=== PATIENT | female | born 1960 | race Caucasian/White ===

== ENCOUNTER 2021-03-31 21:31 | Inpatient (IN) ==
[2021-03-31] MEDS ORDERED: ALBUT/IPRATROP 3MG/0.5MG NEB 3 ML VIAL NEB STA ×2 (21:42)
[2021-03-31 21:58] LABS: Basophils # (auto) 0.01 K/uL (0-0.2); Basophils % (auto) 0.1 %; Eosinophils # (auto) 0.02 K/uL (0-0.5); Eosinophils % (auto) 0.2 %; Hematocrit (blood only) 44.8 % (37-47); Hemoglobin 14.3 g/dL (12.0-16.0); Immature Granulocytes # (auto) 0.02 K/uL (0.00-0.02); Immature Granulocytes % (auto) 0.2 %; Lymphocytes # (auto) 1.08 K/uL (1.2-3.4); Lymphocytes % (auto) 9.4 %; Mean Corpuscular Hemoglobin 29.9 pg (25-34); Mean Corpuscular Hgb Conc 31.9 g/dL (32-36); Mean Corpuscular Volume 93.5 fL (80-100); Mean Platelet Volume 10.6 fL (7.4-10.4); Monocytes # (auto) 0.45 K/uL (0.11-0.59); Monocytes % (auto) 3.9 %; Neutrophils # (auto) 9.86 K/uL (1.4-6.5); Neutrophils % (auto) 86.2 %; Platelet Count 235 K/uL (130-400); RDW Coefficient of Variation 13.9 % (11.5-14.5); RDW Standard Deviation 47.5 fL (36.4-46.3); Red Blood Count 4.79 M/uL (4.2-5.4); White Blood Count 11.44 K/uL (4.8-10.8)
[2021-03-31 22:11] LABS: Partial Thromboplastin Time 25.3 Seconds (21.0-31.0); Prothrombin Time 10.4 Seconds (9.0-12.0)
[2021-03-31 22:11] LABS: Base Excess VBG 2.6 mEq/L; Oxygen Saturation VBG 72.6 %; pH VBG 7.32 (7.36-7.41)
[2021-03-31 22:14] LABS: BUN Creatinine Ratio 13.8 (10-20); Creatinine Clr Calc Pharmacy 56.5 ml/min; Est GFR (African American) 48.3 ml/min; Est GFR (Non-African American) 41.7 ml/min; Potassium 3.5 mmol/L (3.5-5.1)
[2021-03-31 22:18] LABS: Troponin I 0.027 ng/ml (0-0.045)
[2021-03-31] MEDS ORDERED: OPTIRAY 320 125ml IV ONE (22:38)
--- NOTE | 2021-04-01 00:07 | Emergency Department Note ---
History of Present Illness General Chief Complaint: Shortness of Breath/Dyspnea Stated Complaint: Difficulty Breathing Time Seen by Provider: 03/31/21 21:35 History of Present Illness Provider Complaint: shortness of breath Onset (ago): day(s) (1) Severity: severe Relieved By: + oxygen and + bronchodilators Exacerbated By: + lying flat, + coughing and + talking Known history of: COPD and congestive heart failure Associated symptoms: + wheezing; no chest pain, no fever, no cough, no sputum production, no palpitations, no hemoptysis, no syncope or no abdominal pain Treatment prior to arrival: oxygen, bronchodilator (1 duoneb) and NIPPV (CPAP) HPI Narrative: Solu-Medrol 125 mg. Patient is vaccine gets COVID-19 with the Traackr vaccine. Home Medications Medication Instructions Recorded Confirmed Type No Known Home Medications 03/31/21 03/31/21 History Allergies Allergy/AdvReac Type Severity Reaction Status Date / Time No Known Allergies Allergy Verified 03/31/21 22:24 Past Med/Surg History Medical History (Updated 04/01/21 @ 00:51 by Sukh Dumont) CHF (congestive heart failure) COPD (chronic obstructive pulmonary disease) No pertinent family history Surgical History (Updated 04/01/21 @ 00:05 by Sukh Dumont) No pertinent past surgical history Social History Smoking Status: Current every day smoker Tobacco Type: Cigarettes Feels Safe at Home: Yes Review of Systems A total of 10 systems reviewed and were otherwise negative Physical Exam Vital Signs: Vital Signs - 24 hr 03/31/21 21:37 03/31/21 21:49 03/31/21 21:56 Temperature 36.9 C Temperature Source Oral Pulse Rate 102 H 104 H Pulse Rate [Apical ] 104 H 104 H Pulse Rate from Sp O2 Sensor 109 H Respiratory Rate 38 H 25 H 26 H Respiratory Effort / Characteristics Labored Short of Breath Respiratory Depth Normal Respiratory Patter n Regular Blood Pressure 217/140 H 217/140 H Blood Pressure Ana n 165 165 Blood Pressure Pos ition Sitting Pulse Oximetry 98 98 96 Oxygen Delivery Me thod CPAP BiPAP Fraction of Inspir ed Oxygen 50 40 SaO2/FiO2 Ratio 196 Sepsis Recent Feve r Within 48 Hours No Sepsis New/Unexpla ined Change in Men indira Status N/A Sepsis Action Take n by Nursing No Action Required 03/31/21 22:15 03/31/21 23:00 04/01/21 00:01 Temperature Temperature Source Pulse Rate 91 H 118 H 80 Pulse Rate [Apical ] Pulse Rate from Sp O2 Sensor 91 H 117 H 81 Respiratory Rate 22 17 15 Respiratory Effort / Characteristics Respiratory Depth Respiratory Patter n Blood Pressure 215/118 H 199/116 H 177/100 H Blood Pressure Ana n 150 143 125 Blood Pressure Pos ition Pulse Oximetry 96 97 90 Oxygen Delivery Me thod BiPAP Fraction of Inspir ed Oxygen 40 SaO2/FiO2 Ratio Sepsis Recent Feve r Within 48 Hours Sepsis New/Unexpla ined Change in Men nidira Status Sepsis Action Take n by Nursing Physical Exam: Physical Exam GENERAL: Patient on CPAP in respiratory distress. HENT: Exam performed. -Head: Normocephalic and atraumatic. -Right Ear: External ear normal. No mastoid tenderness. -Left Ear: External ear normal. No mastoid tenderness. -Mouth/Throat: The oropharynx is clear and moist. No trismus in the jaw. No dental abscesses or uvula swelling. No oropharyngeal exudate or tonsillar abscesses. EYES: Conjunctivae and EOM are normal. Pupils are equal, round, and reactive to light. Right eye exhibits no discharge. Left eye exhibits no discharge. No scleral icterus. NECK: Normal range of motion. Neck supple. No JVD present. No spinous process tenderness present. No carotid bruit present. No rigidity. No tracheal deviation and normal range of motion present. No Brudzinski's sign and no Kernig's sign noted. CV: Tachycardic rate, regular rhythm, normal heart sounds and intact distal pulses. There is no peripheral edema. Palpable radial pulses bue. PULM/CHEST: Patient tachypneic in respiratory distress. Bilateral expiratory wheezes. ABD: The abdomen is soft. Bowel sounds are normal. She has no distension. No mass is present. There is no tenderness. There is no rebound, no guarding, no Lopez's sign and no tenderness at McBurney's point. Rovsig negative MUSC/SKEL: Normal range of motion. There is no peripheral edema, tenderness or deformity. LYMPH: No cervical adenopathy. NEURO: She is alert and oriented to person, place, and time. She has normal strength. No cranial nerve deficit or sensory deficit. Coordination and gait normal. GCS eye subscore is 4. GCS verbal subscore is 5. GCS motor subscore is 6. Cerebellar tests wnl. SKIN: Skin is warm and dry. She is not diaphoretic. PSYCH: She has a normal mood and affect. Behavior is normal. Judgment and thought content normal. Course Course 2134: The patient was evaluated in room B8. A complete history and physical exam was performed Cardiac monitoring: An order was placed for continuous cardiac monitoring. The monitor shows a rate of 100 with sinus tachycardia rhythm Patient transition from CPAP via EMS to BiPAP. Chest x-ray showed no acute infiltrates. There was concern that the patient might have COVID-19 so the patient was seen in respiratory precautions. Repeat duo nebs ordered for the patient. 2235: Patient is stable on BiPAP. Labs show no leukocytosis. VBG shows venous pH 7.32 with venous PCO2 of 60. Troponin [address] of the chest. 0012: CTA of the chest negative for PE. Does show fluid overload. Patient given Lasix 40 mg IV push. Patient tolerating BiPAP well and her vitals are stable. [facility] 0045: VBG improved. Carboxyhemoglobin negative. Administered Medications Discontinued Medications Albuterol (Albut/Ipratrop 3mg/0.5mg Neb 3 Ml Vial) 3 ml NEB NOW STA Stop: 03/31/21 21:43 Last Admin: 03/31/21 21:54 Dose: 3 ml Documented by: [id number] Albuterol (Albut/Ipratrop 3mg/0.5mg Neb 3 Ml Vial) 3 ml NEB NOW STA Stop: 03/31/21 21:43 Last Admin: 03/31/21 21:59 Dose: 3 ml Documented by: [id number] Furosemide (Furosemide 40 Mg/4 Ml Vial) 40 mg IV NOW STA Stop: 04/01/21 00:12 Last Admin: 04/01/21 00:17 Dose: 40 mg Documented by: [id number] Ioversol (Optiray 320 125ml) 120 ml IV ONCE ONE Stop: 03/31/21 22:39 Last Admin: 03/31/21 22:38 Dose: 120 ml Documented by: [id number] Medical Decision Making Laboratory Data Result diagrams: 03/31/21 21:41 03/31/21 21:41 Lab Results 03/31/21 03/31/21 03/31/21 Range/Units 21:37 21:37 21:41 WBC 11.44 H (4.8-10.8) K/uL RBC 4.79 (4.2-5.4) M/uL Hgb 14.3 (12.0-16.0) g/dL Hct 44.8 (37-47) % MCV 93.5 (80-100) fL MCH 29.9 (25-34) pg MCHC 31.9 L (32-36) g/dL RDW Std Deviation 47.5 H (36.4-46.3) fL RDW Coeff of Lillian 13.9 (11.5-14.5) % Plt Count 235 (130-400) K/uL MPV 10.6 H (7.4-10.4) fL Immature Gran % (Auto) 0.2 % Neut % (Auto) 86.2 % Lymph % (Auto) 9.4 % [place] % (Auto) 3.9 % Eos % (Auto) 0.2 % Baso % (Auto) 0.1 % Neut # (Auto) 9.86 H (1.4-6.5) K/uL Lymph # (Auto) 1.08 L (1.2-3.4) K/uL [place] # (Auto) 0.45 (0.11-0.59) K/uL Eos # (Auto) 0.02 (0-0.5) K/uL Baso # (Auto) 0.01 (0-0.2) K/uL Immature Gran # (Auto) 0.02 (0.00-0.02) K/uL PT (9.0-12.0) Seconds INR (0.9-1.1) APTT (21.0-31.0) Seconds PTT Ratio VBG pH (7.36-7.41) VBG pCO2 (38-50) mmHg VBG pO2 mmHg VBG HCO3 mmol/L VBG O2 Saturation % VBG Base Excess mEq/L Carboxyhemoglobin % THgb Barometric Pressure mm/Hg Sodium (136-145) mmol/L Potassium (3.5-5.1) mmol/L Chloride (98-107) mmol/L Carbon Dioxide (21-32) mmol/L Anion Gap (3-11) BUN (7-18) mg/dl Creatinine (0.6-1.2) mg/dl Est Cr Clr Drug Dosing ml/min Est GFR ( Amer) ml/min Est GFR (Non-Af Amer) ml/min BUN/Creatinine Ratio (10-20) Glucose (70-99) mg/dl Calcium (8.5-10.1) mg/dl Troponin I (0-0.045) ng/ml Lipase (73-393) U/L COVID-19 Eval Order Covid19 at [facility] SARS-CoV-2 (PCR) NEGATIVE (Negative) 03/31/21 03/31/21 03/31/21 Range/Units 21:41 21:41 22:02 WBC (4.8-10.8) K/uL RBC (4.2-5.4) M/uL Hgb (12.0-16.0) g/dL Hct (37-47) % MCV (80-100) fL MCH (25-34) pg MCHC (32-36) g/dL RDW Std Deviation (36.4-46.3) fL RDW Coeff of Lillian (11.5-14.5) % Plt Count (130-400) K/uL MPV (7.4-10.4) fL Immature Gran % (Auto) % Neut % (Auto) % Lymph % (Auto) % [place] % (Auto) % Eos % (Auto) % Baso % (Auto) % Neut # (Auto) (1.4-6.5) K/uL Lymph # (Auto) (1.2-3.4) K/uL [place] # (Auto) (0.11-0.59) K/uL Eos # (Auto) (0-0.5) K/uL Baso # (Auto) (0-0.2) K/uL Immature Gran # (Auto) (0.00-0.02) K/uL PT 10.4 (9.0-12.0) Seconds INR 1.0 (0.9-1.1) APTT 25.3 (21.0-31.0) Seconds PTT Ratio 1.0 VBG pH 7.32 L (7.36-7.41) VBG pCO2 60 H (38-50) mmHg VBG pO2 43 mmHg VBG HCO3 30 mmol/L VBG O2 Saturation 72.6 % VBG Base Excess 2.6 mEq/L Carboxyhemoglobin % THgb Barometric Pressure 728.2 mm/Hg Sodium 142 (136-145) mmol/L Potassium 3.5 (3.5-5.1) mmol/L Chloride 105 (98-107) mmol/L Carbon Dioxide 28 (21-32) mmol/L Anion Gap 10.0 (3-11) BUN 19 H (7-18) mg/dl Creatinine 1.39 H (0.6-1.2) mg/dl Est Cr Clr Drug Dosing 56.5 ml/min Est GFR ( Amer) 48.3 ml/min Est GFR (Non-Af Amer) 41.7 ml/min BUN/Creatinine Ratio 13.8 (10-20) Glucose 199 H (70-99) mg/dl Calcium 9.0 (8.5-10.1) mg/dl Troponin I 0.027 (0-0.045) ng/ml Lipase 80 (73-393) U/L COVID-19 Eval Order SARS-CoV-2 (PCR) (Negative) 04/01/21 04/01/21 Range/Units 00:11 00:11 WBC (4.8-10.8) K/uL RBC (4.2-5.4) M/uL Hgb (12.0-16.0) g/dL Hct (37-47) % MCV (80-100) fL MCH (25-34) pg MCHC (32-36) g/dL RDW Std Deviation (36.4-46.3) fL RDW Coeff of Lillian (11.5-14.5) % Plt Count (130-400) K/uL MPV (7.4-10.4) fL Immature Gran % (Auto) % Neut % (Auto) % Lymph % (Auto) % [place] % (Auto) % Eos % (Auto) % Baso % (Auto) % Neut # (Auto) (1.4-6.5) K/uL Lymph # (Auto) (1.2-3.4) K/uL [place] # (Auto) (0.11-0.59) K/uL Eos # (Auto) (0-0.5) K/uL Baso # (Auto) (0-0.2) K/uL Immature Gran # (Auto) (0.00-0.02) K/uL PT (9.0-12.0) Seconds INR (0.9-1.1) APTT (21.0-31.0) Seconds PTT Ratio VBG pH 7.31 L (7.36-7.41) VBG pCO2 66 H (38-50) mmHg VBG pO2 34 mmHg VBG HCO3 32 mmol/L VBG O2 Saturation 61.1 % VBG Base Excess 4.1 mEq/L Carboxyhemoglobin 0.0 % THgb Barometric Pressure 728.7 mm/Hg Sodium (136-145) mmol/L Potassium (3.5-5.1) mmol/L Chloride (98-107) mmol/L Carbon Dioxide (21-32) mmol/L Anion Gap (3-11) BUN (7-18) mg/dl Creatinine (0.6-1.2) mg/dl Est Cr Clr Drug Dosing ml/min Est GFR ( Amer) ml/min Est GFR (Non-Af Amer) ml/min BUN/Creatinine Ratio (10-20) Glucose (70-99) mg/dl Calcium (8.5-10.1) mg/dl Troponin I (0-0.045) ng/ml Lipase (73-393) U/L COVID-19 Eval Order SARS-CoV-2 (PCR) (Negative) Imaging Data Radiologist's Impression: Preliminary Findings Only See Final Report For Complete Findings CTA CHEST: No pulmonary embolism. Enlarged pulmonary arteries consistent with pulmonary arterial hypertension. Ectatic ascending thoracic aorta measuring 4.4 cm. No aneurysm by size criteria. Coronary artery atherosclerosis. Trace pericardial effusion. Small layering pleural effusions. No pneumothorax. Pulmonary edema. No acute osseous findings. Radiologist: Fabian Fontaine M.D. Study ready at 23:44 and initial results transmitted at 23:55 ECG Data Interpretation: Sinus rhythm with rate of 98. [place] QRS and QTc intervals within normal limits. No ST elevation or ST depression. Left ventricular hypertrophy present. [facility] Narrative 2131: The patient was evaluated in room B8. A complete history and physical exam was performed Cardiac monitoring: An order was placed for continuous cardiac monitoring. The monitor shows a rate of 100 with sinus tachycardia rhythm Patient transition from CPAP via EMS to BiPAP. Chest x-ray showed no acute infiltrates. There was concern that the patient might have COVID-19 so the patient was seen in respiratory precautions. Repeat duo nebs ordered for the patient. 2235: Patient is stable on BiPAP. Labs show no leukocytosis. VBG shows venous pH 7.32 with venous PCO2 of 60. Troponin [address] of the chest. 0012: CTA of the chest negative for PE. Does show fluid overload. Patient given Lasix 40 mg IV push. Patient tolerating BiPAP well and her vitals are stable. [facility]. 0045: VBG improved. Carboxyhemoglobin negative. Impression & Plan Hypoxia, COPD (chronic obstructive pulmonary disease), CHF (congestive heart failure) Critical Care Time Critical Care Time: Yes Total Critical Care Time: 58 I have personally spent greater than 58 minutes of critical care time in the direct management of this patient. This includes bedside care, interpretation of diagnostic studies, and testing, discussion with consultants, patient, and family members, and other required patient management activities. This 60 vaughn rodney is in excess of all separately billable procedures. Discharge Plan Visit Data Chief Complaint: Shortness of Breath/Dyspnea Stated Complaint: Difficulty Breathing ED Provider: Sukh Dumont Discharge Problem: Hypoxia, COPD (chronic obstructive pulmonary disease), CHF (congestive heart failure) Patient Disposition: Admitted As Inpatient Forms Stand Alone Forms: My [facility] Prescriptions Prescriptions: No Action No Known Home Medications RF: 0 Referrals Referrals: PCP,NO [Primary Care Provider] -
[2021-04-01] MEDS ORDERED: FUROSEMIDE 40 MG/4 ML VIAL IV STA (00:11)
[2021-04-01 00:26] LABS: Base Excess VBG 4.1 mEq/L; Oxygen Saturation VBG 61.1 %; pH VBG 7.31 (7.36-7.41)
--- NOTE | 2021-04-01 00:45 | History & Physical Report ---
Date of Service April 01, 2021 Assessment & Plan (1) Acute respiratory failure with hypoxia and hypercapnia: Plan: Combination of CHF and COPD exacerbations. Continue BiPAP for now at present settings, and taper downward as symptoms improve (2) CHF (congestive heart failure): Plan: CHF/uncontrolled hypertension- Given Lasix 40 mg IV in the ED The patient will be admitted to telemetry for serial cardiac enzymes, serial EKG's, cardiac rhythm monitoring and a 2-D echocardiogram with Dopplers. Give Cardizem 10 mg IV now, and Cardizem 30 mg p.o. now. Start Cardizem 30 mg p.o. 4 times daily Start on furosemide 20 mg p.o. every morning Cardizem 10 mg IV every 4 hours as needed for systolic blood pressure greater than 160 (3) COPD (chronic obstructive pulmonary disease): Plan: COPD exacerbation- Already received methylprednisolone 125 mg IV from the ED Methylprednisolone 20 mg IV every 8 hours Guaifenesin extended release 1200 mg p.o. twice daily Azithromycin 5 mg IV daily Duonebs every 4 hours while awake and every 2 hours when necessary. Pulmicort Respules 0.5 mg inhaled twice daily (4) Renal insufficiency: Plan: Creatinine 1.39 upon admission, with unknown baseline. Repeat serially in a.m. (5) Hyperglycemia: Plan: Glucose [address] Accu-Cheks before meals and at bedtime with NovoLog coverage per scale Check hemoglobin A1c (6) Morbid obesity with BMI of 40.0-44.9, adult: Plan: Noted as risk factor for heart disease (7) Tobacco use disorder: Plan: Discussed the importance of complete tobacco cessation History of Present Illness Chief Complaint: The patient presents to the emergency department with complaint of gradually worsening shortness of breath over the past few months, in particular on days when it was more humid, and worsened considerably over the past 24 hours. Primary Care Provider: NO PCP The patient is a 60-year-old female with a past medical history including COPD, CHF, morbid obesity and tobacco abuse, who presents emergency department symptoms noted above. She continues to smoke on average one fourth of a pack of cigarettes daily. She denies any recent travels or sick exposures. Work-up in the emergency department included a room air pulse ox of 86 to 88%, requiring administration of BiPAP with 40% FiO2 to have an O2 sat of 97%. Chest x-ray and CT angiography chest PE protocol were consistent with mild pulmonary edema. She did notice improvement with DuoNeb's in the ED and administration of Lasix 40 mg IV Allergies Allergy/AdvReac Type Severity Reaction Status Date / Time No Known Allergies Allergy Verified 03/31/21 22:24 Home Medications Medication Instructions Recorded Confirmed Type No Known Home Medications 03/31/21 03/31/21 History Past Med/Surg History Medical History (Updated 04/01/21 @ 01:34 by Earl Daniel MD) CHF (congestive heart failure) COPD (chronic obstructive pulmonary disease) No pertinent family history Surgical History (Updated 04/01/21 @ 00:05 by Sukh Dumont) No pertinent past surgical history Social History Smoking Status: Current every day smoker Tobacco Type: Cigarettes Feels Safe at Home: Yes Review of Systems Review of Systems: The patient denies chest pain, palpitations, cough, lower extremity swelling, sore throat, fevers, chills, sweats, fatigue, nausea, vomiting, diarrhea , constipation, abdominal pain, pelvic pain, blood in urine or stool, dysuria, urinary frequency or urgency, lightheadedness, dizziness, headache, memory loss, loss of consciousness, rash, abnormal bruising or bleeding, imbalance, focal or generalized weakness, numbness or tingling in arms or legs, generalized arthralgias or myalgias, back or neck pain, or night sweats. The review of systems is otherwise negative other than for that already noted above, and at least 10 systems have been reviewed. Physical Exam Physical Exam: The patient is awake, alert and oriented 3, well developed and well nourished, normocephalic and atraumatic, lying in bed and in no acute distress. HEENT--PERRL, EOMI, mucous membranes and oropharynx dry. Neck--supple. No JVD. No bruits. Thyroid normal, trachea midline, no adenopathy. Heart--normal S1 and S2. No murmurs, rubs or gallops. Lungs--scattered wheezes and coarse breath sounds bilaterally. No respiratory distress, no accessory muscle use. Abdomen--normal bowel sounds and soft. Nontender. Nondistended. Morbidly obese Extremities--1+ bilateral pretibial pitting edema. Dermatologic--normal skin turgor, normal color, no abnormal lymph nodes, no rash. Neurologic--cranial nerves II through XII grossly intact. Rheumatologic--normal range of motion. Psychiatric--normal affect. Results & Data Results & Data ([facility]) Vital Signs (Past 12 Hours) Vital Signs Temp Pulse Pulse Resp BP Pulse Ox 04/01/21 00:01 80 15 177/100 H 90 03/31/21 23:00 118 H 17 199/116 H 97 03/31/21 22:15 91 H 22 215/118 H 96 03/31/21 21:56 104 H 26 H 96 03/31/21 21:49 98.4 F 104 H 104 H 25 H 217/140 H 98 03/31/21 21:37 102 H 38 H 217/140 H 98 Laboratory Results Laboratory Results WBC 11.44 K/uL (4.8-10.8) H 03/31/21 21:41 RBC 4.79 M/uL (4.2-5.4) 03/31/21 21:41 Hgb 14.3 g/dL (12.0-16.0) 03/31/21 21:41 Hct 44.8 % (37-47) 03/31/21 21:41 MCV 93.5 fL (80-100) 03/31/21 21:41 MCH 29.9 pg (25-34) 03/31/21 21:41 MCHC 31.9 g/dL (32-36) L 03/31/21 21:41 RDW Std Deviation 47.5 fL (36.4-46.3) H 03/31/21 21:41 RDW Coeff of Lillian 13.9 % (11.5-14.5) 03/31/21 21:41 Plt Count 235 K/uL (130-400) 03/31/21 21:41 MPV 10.6 fL (7.4-10.4) H 03/31/21 21:41 Immature Gran % (Auto) 0.2 % 03/31/21 21:41 Neut % (Auto) 86.2 % 03/31/21 21:41 Lymph % (Auto) 9.4 % 03/31/21 21:41 [place] % (Auto) 3.9 % 03/31/21 21:41 Eos % (Auto) 0.2 % 03/31/21 21:41 Baso % (Auto) 0.1 % 03/31/21 21:41 Neut # (Auto) 9.86 K/uL (1.4-6.5) H 03/31/21 21:41 Lymph # (Auto) 1.08 K/uL (1.2-3.4) L 03/31/21 21:41 [place] # (Auto) 0.45 K/uL (0.11-0.59) 03/31/21 21:41 Eos # (Auto) 0.02 K/uL (0-0.5) 03/31/21 21:41 Baso # (Auto) 0.01 K/uL (0-0.2) 03/31/21 21:41 Immature Gran # (Auto) 0.02 K/uL (0.00-0.02) 03/31/21 21:41 PT 10.4 Seconds (9.0-12.0) 03/31/21 21:41 INR 1.0 (0.9-1.1) 03/31/21 21:41 APTT 25.3 Seconds (21.0-31.0) 03/31/21 21:41 PTT Ratio 1.0 03/31/21 21:41 VBG pH 7.31 (7.36-7.41) L 04/01/21 00:11 VBG pCO2 66 mmHg (38-50) H 04/01/21 00:11 VBG pO2 34 mmHg 04/01/21 00:11 VBG HCO3 32 mmol/L 04/01/21 00:11 VBG O2 Saturation 61.1 % 04/01/21 00:11 VBG Base Excess 4.1 mEq/L 04/01/21 00:11 Carboxyhemoglobin 0.0 % THgb 04/01/21 00:11 Barometric Pressure 728.7 mm/Hg 04/01/21 00:11 Sodium 142 mmol/L (136-145) 03/31/21 21:41 Potassium 3.5 mmol/L (3.5-5.1) 03/31/21 21:41 Chloride 105 mmol/L (98-107) 03/31/21 21:41 Carbon Dioxide 28 mmol/L (21-32) 03/31/21 21:41 Anion Gap 10.0 (3-11) 03/31/21 21:41 BUN 19 mg/dl (7-18) H 03/31/21 21:41 Creatinine 1.39 mg/dl (0.6-1.2) H 03/31/21 21:41 Est Cr Clr Drug Dosing 56.5 ml/min 03/31/21 21:41 Est GFR ( Amer) 48.3 ml/min 03/31/21 21:41 Est GFR (Non-Af Amer) 41.7 ml/min 03/31/21 21:41 BUN/Creatinine Ratio 13.8 (10-20) 03/31/21 21:41 Glucose 199 mg/dl (70-99) H 03/31/21 21:41 Calcium 9.0 mg/dl (8.5-10.1) 03/31/21 21:41 Troponin I 0.027 ng/ml (0-0.045) 03/31/21 21:41 Lipase 80 U/L (73-393) 03/31/21 21:41 COVID-19 Eval Order Covid19 at [facility] 03/31/21 21:37 SARS-CoV-2 (PCR) NEGATIVE (Negative) 03/31/21 21:37 ECG Additional Comments: TRAN ADAMS ID:[id number] 31-MAR-2021 21:44:09 [facility]- EDSTAT ROUTINE RETRIEVAL Sinus rhythm with Premature supraventricular complexes Minimal voltage criteria for LVH, may be normal variant Septal infarct , age undetermined ST & T wave abnormality, consider lateral ischemia Abnormal ECG No previous ECGs available 25mm/s 10mm/mV 150Hz 9.0.9 12SL 241 REYNA: 11 Unconfirmed Vent. rate 98 BPM MN interval 190 ms QRS duration 96 ms QT/QTc 342/436 ms P-R-T axes 63 20 150 60 yr Female Room: L Code Status & VTE Plan Code Status Full code VTE Prophylaxis Plan VTE Prophylaxis will be ordered: Yes PG Care Time/CCT Total # of Minutes Spent Total Time Spent with Patient: Total time spent is greater than 50% in coordination of care (as documented) at patient's floor/unit and/or counseling patient: Coding Level of Care Code 03081 Initial Inpt Care Lvl 3 Diagnoses Acute respiratory failure with hypoxia and hypercapnia J96.01; J96.02 CHF (congestive heart failure) I50.9 Heart failure chronicity: acute on chronic Heart failure type: unspecified COPD (chronic obstructive pulmonary disease) J44.1 COPD type: COPD with acute exacerbation Renal insufficiency N28.9 Hyperglycemia R73.9 Morbid obesity with BMI of 40.0-44.9, adult E66.01; Z68.41 Tobacco use disorder F17.200 (1) CHF (congestive heart failure) Heart failure chronicity: acute on chronic Heart failure type: unspecified Qualified Code(s): I50.9 - Heart failure, unspecified (2) COPD (chronic obstructive pulmonary disease) COPD type: COPD with acute exacerbation Qualified Code(s): J44.1 - Chronic obstructive pulmonary disease with (acute) exacerbation
[2021-04-01] MEDS ORDERED: dilTIAZem HCl 5 MG/ML 5 ML VIAL IV STA (01:39)
[2021-04-01] MEDS ORDERED: dilTIAZem HCl 5 MG/ML 5 ML VIAL IV PRN (01:43)
[2021-04-01] MEDS ORDERED: dilTIAZem HCL 30 MG TAB PO STA (01:54)
[2021-04-01] MEDS ORDERED: DEXTROSE 50% 50 ML SYRINGE IV PRN (04:07)
[2021-04-01] MEDS ORDERED: GLUCOSE 10 TABS/TUBE PO PRN (04:07)
[2021-04-01] MEDS ORDERED: GLUCAGON FOR INJ 1 MG VIAL SQ PRN (04:07)
[2021-04-01] MEDS ORDERED: GLUCOSE 40% GEL 15 GM TUBE PO PRN (04:07)
[2021-04-01] MEDS ORDERED: CARBOHYDRATES FOR HYPOGLYCEMIA PO PRN (04:07)
[2021-04-01] MEDS ORDERED: AZITHROMYCIN 500 MG in DEXTROSE 5% 250 ML IV SCH (05:00)
[2021-04-01] MEDS: NITROGLYCERIN 2% OINTMENT 30GM TUBE EXT SCH ×4 (05:06→23:59)
[2021-04-01] MEDS: methylPREDNISolone 20 MG in SYRINGE 0 ML IV SCH ×2 (05:08→11:49)
[2021-04-01] MEDS: ENOXAPARIN INJ 40 MG/0.4 ML SYR SQ SCH (05:08)
--- NOTE | 2021-04-01 06:31 | CT Scan Report ---
CT ANGIOGRAM OF THE CHEST CLINICAL HISTORY: Dyspnea. COMPARISON STUDY: Chest x-ray dated 03/31/2021. TECHNIQUE: Following the IV administration of 120 cc of Optiray 320, CT angiogram of the chest was pe rformed from the upper abdomen to the thoracic inlet utilizing the pulmonary embolus protocol. Images are reviewed in the axial, sagittal, and coronal planes. 3-D MIPS images are created and assessed. I V contrast was administered without complication. A dose lowering technique was utilized adhering to the principles of ALARA. CT DOSE: 571.96 mGycm FINDINGS: Thyroid: Imaged portions of the thyroid gland are normal in size and attenuation. Thoracic aorta: There is atherosclerotic calcification of the thoracic aorta. There is mild aneurysm dilatation of the ascending thoracic aorta which measures up to 4.3 cm. The remainder of the thoracic aorta is normal in caliber, and the arch demonstrates standard 3-vessel anatomy. No dissection is se en. Pulmonary vasculature: The pulmonary trunk is markedly dilated, measuring 4.6 cm in diameter. This stevens ggests pulmonary artery hypertension. There are no filling defects identified in main, lobar, or segm ental pulmonary branches to suggest pulmonary embolus. Heart: The heart is mildly enlarged and without pericardial effusion. The coronary arteries are dense ly calcified. Lungs and pleural spaces: There is diffuse intralobular septal thickening and mild groundglass change . There are small pleural effusions with bibasilar atelectasis. Minimal secretions are noted in the t rachea. 3 mm left lower lobe pulmonary nodules are seen on images #75 and #83. A 4 mm pleural-based n odule in the left lower lobe as seen on image #115. A 3 mm right lower lobe pulmonary nodule is seen image #144. Mediastinum: There is no mediastinal lymphadenopathy. Thea: Clear. Axillae: There is no axillary lymphadenopathy. Upper abdomen: Partially visualized upper abdominal viscera is within normal limits. Skeletal structures: The skeletal structures are osteopenic. No lytic or blastic bony lesions are see n. IMPRESSION: 1. There is no evidence of pulmonary embolus in the main, lobar, or segmental pulmonary arteries. 2. Cardiomegaly with evidence of pulmonary artery hypertension. 3. Diffuse intralobular septal thickening mild groundglass change is typical for congestive failure a nd mild pulmonary edema. Correlate clinically for evidence of a superimposed infectious/inflammatory pneumonitis. 4. Small pleural effusions. 5. Suspect small pulmonary nodules measure up to 4 mm. These are not well assessed due to surrounding parenchymal change. A 3-4 month follow-up chest CT is recommended for reassessment. 6. There is mild aneurysmal dilatation of the ascending thoracic aorta which measures up to 4.3 cm. 7. Additional findings as above. ACT 112: Negative or not required by law. Electronically signed by: Huey Walsh M.D. 04/01/2021 6:30 AM
[2021-04-01 06:40] LABS: Troponin I 0.513 ng/ml (0-0.045)
[2021-04-01] MEDS: ALBUT/IPRATROP 3MG/0.5MG NEB 3 ML VIAL NEB SCH ×4 (07:28→21:55)
[2021-04-01] MEDS: BUDESONIDE 0.5 MG/2 ML VIAL (PULMICORT) NEB SCH ×2 (07:28→19:21)
[2021-04-01 08:10] LABS: Estimated Average Glucose 114 mg/dl; Hemoglobin A1C 5.6 % (4.5-5.6)
--- NOTE | 2021-04-01 08:33 | XRay Report ---
XR chest 1V portable CLINICAL HISTORY: Chest Pain COMPARISON STUDY: No previous studies for comparison. FINDINGS: Lung volumes are normal. There are trace bilateral pleural effusions. There is no pneumotho rax. Interstitial thickening is noted. Cardiomegaly is noted. IMPRESSION: 1. Interstitial pulmonary edema with trace bilateral pleural effusions. 2. Cardiomegaly. ACT 112: Negative or not required by law. Electronically signed by: Levar Darling M.D. 04/01/2021 8:31 AM
[2021-04-01] MEDS: guaiFENesin 600 MG TABCR PO SCH ×2 (08:45→20:08)
[2021-04-01] MEDS: dilTIAZem HCL 30 MG TAB PO SCH ×4 (08:45→20:10)
[2021-04-01] MEDS: FUROSEMIDE 20 MG TAB PO SCH (08:45)
[2021-04-01] MEDS: INSULIN ASPART 100 UNITS/ML 3 ML PEN SC SCH ×4 (08:45→20:10)
--- NOTE | 2021-04-01 10:09 | Electrocardiogram Report ---
Test Reason : Blood Pressure : / mmHG Vent. Rate : 098 BPM Atrial Rate : 098 BPM P-R Int : 190 ms QRS Dur : 096 ms QT Int : 342 ms P-R-T Axes : 063 020 150 degrees QTc Int : 436 ms Poor data quality, interpretation may be adversely affected Sinus rhythm with Premature supraventricular complexes Left ventricular hypertrophy with repolarization abnormality Abnormal ECG No previous ECGs available Confirmed by Caleb Smith ([id number]) on 04/01/2021 10:09:14 AM Referred By: REFERRED SELF Confirmed By:Caleb Smith
--- NOTE | 2021-04-01 11:48 | Hospitalist Progress Note ---
Date of Service April 01, 2021 Assessment & Plan (1) Acute respiratory failure with hypoxia and hypercapnia: Plan: Mikayla is a 60-year-old female with a history of HTN and tobacco use who presented to [facility] with acute (likely on-chronic) hypoxemic, hypercapnic res piratory failure, thought to be secondary to COPD exacerbation and possible newly-discovered CHF. She is hemodynamically stable. Acute Hypoxemic, Hypercapnic Respiratory Failure * Reporting several weeks of worsening CHAMBERLAIN, generalized SOB, +orthopnea, +peripheral edema * In ED, found to be hypoxemic to 86% with pCO2 of 66 on ABG * CTA-Chest revealing of cardiomegaly, changes c/w pHTN, diffuse septal thickening c/w congestive failure or pneumonitis, small pleural effusions, small pulmonary nodules, mild aneurysm dilatation of ascending thoracic aorta * Suspect ventilation/oxygenation issues are due to mixed COPD, CHF worsening / exacerbation * Possible component of NELSON too --> nocturnal pulse oximetry ordered * s/p BiPAP --> now stable on 3L NC * As below Symptomatic Volume Overload * Clinically reporting worsening CHAMBERLAIN, SOB, +orthopnea, ?+PND x several weeks and findings of volume overload on physical exam as well as HTN * No known history of CHF per patient * s/p Lasix 40mg IV x 1 in ED with adequate response * Continue Lasix 20mg PO qAM * Await TTE * Lasix 40mg IV now * Monitor I&Os, daily weights * Will add-on NT-pBNP for screening, prognostic evaluation * Maintain K > 4, Mg > 2, Phos > 3 Elevated Troponin * Admission troponin 0.027 --> elevating to 0.51 since arrival * No acute repolarization or conduction abnormalities appreciated on arrival ECG * Suspect secondary to demand ischemia in setting of HTN, COPD, possibly acute CHF * Await TTE COPD * Patient with known smoking history (0.75ppd x 43yr = 32 pack-year) * Transition from methylprednisone to prednisone taper (40mg) x 10 days * Azithromycin 500mg x 4 days (finish 04/01) * Transition to DuoNebs q8h, additional p.r.n. * Continue mucociliary clearance - guaifenesin * Pulmicort Respules 0.5 mg inh b.i.d. HTN * On admission, BPs ranging between 190s-220s/110s-140s * Initiated on Cardizem 30mg PO q.i.d. --> 10mg IV q4h p.r.n. for BPs > 160 * Without symptoms at present * Continue Lasix, as above * Once creatinine and respiratory status stabilizes, anticipate starting ACEI and transitioning to metoprolol (likely tomorrow) BJORN * Unknown Cr baseline * On admissionn, BUN 19 / Cr 1.39 * Suspect prerenal in setting of acute volume overload * Monitor. Suspect improvement with diuresis Code: FULL CODE Dispo: MS/Tele PPX: Lovenox Diet: Cardiac (2) CHF (congestive heart failure): (3) COPD (chronic obstructive pulmonary disease): (4) Renal insufficiency: (5) Hyperglycemia: (6) Morbid obesity with BMI of 40.0-44.9, adult: (7) Tobacco use disorder: Admission and Anticipated Discharge Date Admission Date: April 01, 2021 Supervising Physician Co-Signing Physician Notes I also saw the patient for lynch portions of the history and physical examination. I agree with the impression and plan as noted in resident documentation. 60-year-old female admitted earlier this morning after experiencing progressively increasing shortness of breath that she was driving from [place], [place] to [place], [place]. She reports that she had stopped in a pharmacy to see if she could get some Primatene Mist -which usually helps when she gets short of breath -however she was not able to find any. She then returned to her car, resume driving, and when her symptoms worsened, she pulled off to the side of the road. She was on his way brought into the emergency department by EMS. She was on BiPAP overnight, but has now been weaned to 3 L/m in via nasal cannula. This morning, she notes that she is feeling marked improvement in terms of her dyspnea. Exam 161/86, 87, 16, 36.5, 90% on 2 L/min via nasal cannula Seated in bed. No acute distress. HEENT unremarkable. Heart regular rate and rhythm. Slight crackles in the bases bilaterally but otherwise clear abdomen is obese, soft and nontender. Data WBC 11.44, hemoglobin 14.3 BUN 19, creatinine 1.39 Glucose 199, hemoglobin A1c 5.6% BNP 27,254 Troponin I 0.526 Total cholesterol 207, LDL 135, HDL 61. Covid screen is negative. A CT of the chest on admission shows no evidence of pulmonary embolism. Findings suggestive of congestive failure mild pulmonary edema, small pleural effusions mild aneurysmal dilatation descending thoracic aorta measuring up to 4.3 cm. There is dilatation of the pulmonary trunk suggestive of pulmonary arterial hypertension. Impression and Plan Acute hypoxemic, hypercapnic respiratory failure Probably multifactorial, neck COPD, acute on chronic CHF, and likely a component of obstructive sleep apnea Continue diuresis Nocturnal pulse oximetry tonight Elevated troponin Suspect demand ischemia Echocardiogram pending COPD Extensive smoking history Transition from IV methylprednisolone to oral prednisone Course azithromycin Acute kidney injury Uncertain baseline Monitor, especially during diuresis Subjective Transitioned off BiPAP into this morning. Says she is feeling a lot better compared to last night. Breathing much easier. Intermittent cough. Appetite ok. No CP, abdominal pain, n/v/d. Spirits are ok. On review of her history, she does endorse using 4 pillows at night to help herself breathe better. Does endorse getting up several times in the middle of the night to urinate, but not really because she is short of breath. She does endorse that she has been told she snores. Review of Systems Review of Systems: as per HPI Physical Exam Physical Exam: General: 60-year-old female who is sitting up in her hospital bed relaxed upon my arrival. She is in no acute distress. HEENT: NCAT. Eyes - Sclera are white, anicteric, and without injection. PERRL. Mouth - MMM with no tonsillar edema or exudates. Cardiac: Normal rate and regular rhythm, S1 and S2 are present with grade 1 out of 6 systolic ejection murmur best heard at the right upper sternal border. There is 2+ pitting edema in the lower extremities bilaterally. Unable to a ssess for JVD given habitus. Pulmonary: Good respiratory effort with symmetric expansion of the chest. No use of accessory muscles. No conversational dyspnea. There are intermittent crackles heard throughout both lungs, more appreciable in the right compared to left on my exam. Abdominal: Normoactive bowel sounds. Abdomen was soft, nondistended, and non- tender to palpation. Extremities: Upper and lower extremities are warm and well perfused. Radial and dorsalis pedis pulses were 2+ b/l. Capillary refill assessed in UE was < 3 sec. Psych: Well-developed, well-nourished, appropriately dressed for occasion. Behavior is cooperative and appropriate. Affect is WNL. Insight is appropriate. Results & Data Results & Data ([facility]) Vital Signs (Past 12 Hours) Vital Signs Temp Pulse Pulse Resp BP BP Pulse Ox 04/01/21 11:13 36.4 C L 77 20 174/104 H 95 04/01/21 11:05 86 16 94 04/01/21 07:30 72 16 95 04/01/21 07:12 36.4 C L 75 18 159/99 H 94 04/01/21 07:01 75 04/01/21 04:38 77 04/01/21 04:11 36.7 C 78 16 180/89 H 92 04/01/21 02:00 79 22 173/104 H 96 04/01/21 01:00 83 14 171/130 H 97 04/01/21 00:01 80 15 177/100 H 90 Resident Activity Tracking Resident Involvement: Resident Care Provided Care Provided: Adult Hospital Medicine (1) CHF (congestive heart failure) Heart failure chronicity: acute on chronic Heart failure type: unspecified Qualified Code(s): I50.9 - Heart failure, unspecified (2) COPD (chronic obstructive pulmonary disease) COPD type: COPD with acute exacerbation Qualified Code(s): J44.1 - Chronic obstructive pulmonary disease with (acute) exacerbation
[2021-04-01] MEDS ORDERED: FUROSEMIDE 40 MG in SYRINGE 0 ML IV ONE (12:20)
[2021-04-01] MEDS: ACETAMINOPHEN 325 MG TAB PO PRN ×2 (12:31→21:41)
--- NOTE | 2021-04-01 12:50 | XCELERA ---
[id number]
[2021-04-01] MEDS ORDERED: NICOTINE 7 MG/24 HR TDSY TD PRN (15:19)
[2021-04-01] MEDS ORDERED: COUGH DROP (SUGAR FREE) LOZ 24 LOZ/1 BOX BUCCAL ONE (17:15)
[2021-04-01] MEDS ORDERED: COUGH DROP (SUGAR FREE) LOZ 24 LOZ/1 BOX BUCCAL PRN (17:37)
[2021-04-02] MEDS: NITROGLYCERIN 2% OINTMENT 30GM TUBE EXT SCH ×4 (06:18→23:47)
[2021-04-02] MEDS: ENOXAPARIN INJ 40 MG/0.4 ML SYR SQ SCH (06:20)
[2021-04-02 06:34] LABS: Hematocrit (blood only) 37.5 % (37-47); Hemoglobin 11.9 g/dL (12.0-16.0); Immature Granulocytes # (auto) 0.04 K/uL (0.00-0.02); Immature Granulocytes % (auto) 0.3 %; Lymphocytes # (auto) 0.98 K/uL (1.2-3.4); Lymphocytes % (auto) 6.8 %; Mean Corpuscular Hemoglobin 28.9 pg (25-34); Mean Corpuscular Hgb Conc 31.7 g/dL (32-36); Mean Platelet Volume 10.3 fL (7.4-10.4); Monocytes # (auto) 0.86 K/uL (0.11-0.59); Neutrophils # (auto) 12.45 K/uL (1.4-6.5); Neutrophils % (auto) 86.9 %; Platelet Count 193 K/uL (130-400); RDW Coefficient of Variation 13.8 % (11.5-14.5); RDW Standard Deviation 45.3 fL (36.4-46.3); Red Blood Count 4.12 M/uL (4.2-5.4); White Blood Count 14.33 K/uL (4.8-10.8)
--- NOTE | 2021-04-02 06:49 | Hospitalist Progress Note ---
Date of Service April 02, 2021 Assessment & Plan (1) Acute respiratory failure with hypoxia and hypercapnia: Plan: Mikayla is a 60-year-old female with a history of HTN and tobacco use who presented to [facility] with acute (likely on-chronic) hypoxemic, hypercapnic res piratory failure, thought to be secondary to COPD exacerbation and possible newly-discovered CHF. She is hemodynamically stable. Acute Hypoxemic, Hypercapnic Respiratory Failure -- much improved * Reporting several weeks of worsening CHAMBERLAIN, generalized SOB, +orthopnea, +peripheral edema * In ED, found to be hypoxemic to 86% with pCO2 of 66 on ABG * CTA-Chest revealing of cardiomegaly, changes c/w pHTN, diffuse septal thickening c/w congestive failure or pneumonitis, small pleural effusions, small pulmonary nodules, mild aneurysm dilatation of ascending thoracic aorta * Suspect ventilation/oxygenation issues are due to mixed COPD, CHF worsening / exacerbation * Possible component of NELSON too --> nocturnal pulse oximetry ordered - >25 hypoxic events totaling >30 min on oximetry: recommend formal sleep study as outpatient * s/p BiPAP --> now stable on 3L NC * As below Heart Failure with Reduced Ejection Fraction -- LVEF 45-50% * Clinically reporting worsening CHAMBERLAIN, SOB, +orthopnea, ?+PND x several weeks and findings of volume overload on physical exam as well as HTN * TTE 04/01: LVEF 45-50% with global LV hypokinesis, elevated pHTN, mild- moderate aortic and tricuspid regurgitation * Adequately responded to diuresis * Initiate metoprolol succinate 25mg PO qAM * Hold Lasix 20mg PO daily given BJORN * Hold initiation of ACEI (lisinopril 5) given BJORN -- restart when resolved * Recommend exercise stress test as outpatient * Monitor I&Os, daily weights * Maintain K > 4, Mg > 2, Phos > 3 Elevated Troponin -- downtrending as of 1730 on 04/01 * Admission troponin 0.027 --> peaked at 0.5, downtrended at 1730 on 04/01 * No acute repolarization or conduction abnormalities appreciated on arrival ECG * Suspect secondary to demand ischemia in setting of HTN, COPD, possibly acute CHF * As above: recommend exercise stress test as outpatient COPD * Patient with known smoking history (0.75ppd x 43yr = 32 pack-year) * Transition to prednisone taper (40mg) x 10 days (start 04/01) * s/p azithromycin x 4 days * Start Anoro Ellipta * Continue mucociliary clearance - guaifenesin * Pulmicort Respules 0.5 mg inh b.i.d. * DuoNebs p.r.n. * Recommend PFTs as outpatient HTN * On admission, BPs ranging between 190s-220s/110s-140s * Transition from diltiazem --> metoprolol succinate 25mg daily * Hold ACEI in setting of BJORN * Without symptoms at present * Continue Lasix, as above BJORN * Unknown Cr baseline * On admissionn, BUN 19 / Cr 1.39 -- while initially improved, did worsen to 32/2.29 AM of 04/02 * Suspect prerenal in setting of acute volume overload and diuresis * Will monitor. Hold Lasix, ACEI, avoid nephrotoxins Code: FULL CODE Dispo: MS/Tele PPX: Lovenox Diet: Cardiac (2) CHF (congestive heart failure): (3) COPD (chronic obstructive pulmonary disease): (4) Renal insufficiency: (5) Hyperglycemia: (6) Morbid obesity with BMI of 40.0-44.9, adult: (7) Tobacco use disorder: Admission and Anticipated Discharge Date Admission Date: April 01, 2021 Supervising Physician Co-Signing Physician Notes I also saw the patient for lynch portions of the history and physical examination. I She is overall feeling much better today. Less shortness of breath. She denies any chest pain. She is working on logistics of getting family from her home town to [place] to drive her back home to [place]. This should be possible tomorrow if she is cleared medically.. Exam 155/88, 62, 18, 36.6, 91% on room air Seated in bed. No acute distress. HEENT unremarkable. Heart regular rate and rhythm. Lungs are clear with nonlabored respirations Data White blood count 14.33, hemoglobin 11.9 BUN 32, creatinine 2.29 Glucose 199, hemoglobin A1c 5.6% An overnight pulse oximetry showed 25 desaturation events, totaling 32 minutes and 18 seconds. Highest reading 98%, lowest 77%, mean 93% Impression and Plan I agree with the impression and plan as noted in the resident documentation. Acute hypoxemic, hypercapnic respiratory failure Probably multifactorial, COPD, acute on chronic CHF, and likely a component of obstructive sleep apnea Continue diuresis woth PO Lasix. Nocturnal pulse oximetry test suggestive of NELSON, will need formal sleep study as outpatient Elevated troponin Suspect demand ischemia Discussed need for outpatient cardiology referral. Elevated blood pressure We will add Toprol-XL 25 mg daily, which should help but at this time should not exacerbate her lung disease. Titration of KEMAR inhibitor probably not feasible at this time due to elevated creatinine. Norvasc may be an option if her blood pressure remains elevated despite addition of Toprol. COPD Extensive smoking history Oral prednisone Complete course azithromycin Acute kidney injury Uncertain baseline, Suspect second to diuresis We will continue p.o. Lasix 20 mg daily (she had 40 mg IV additional dose yesterday, which may account for her elevated creatinine this morning). We will hold her low-dose lisinopril for time being Subjective No acute events overnight. Patient said that she was successfully able to be weaned off oxygen into the morning. Says she slept well. Says her breathing is 100% better. Cough is decreasing. No chest pain, palpitations, shortness of breath. Good appetite, no nausea. Review of Systems Review of Systems: As per HPI Physical Exam Physical Exam: General: 60-year-old female who is sitting up in her hospital bed relaxed upon my arrival. She is in no acute distress. HEENT: NCAT. Eyes - Sclera are white, anicteric, and without injection. PERRL. Mouth - MMM with no tonsillar edema or exudates. Cardiac: Normal rate and regular rhythm, S1 and S2 are present without m/r/g. There is trace pitting edema in the lower extremities bilaterally. Unable to assess for JVD given habitus. Pulmonary: Good respiratory effort with symmetric expansion of the chest. No use of accessory muscles. No conversational dyspnea. No crackles or wheezes appreciated on exam this morning. Abdominal: Normoactive bowel sounds. Abdomen was soft, nondistended, and non- tender to palpation. Extremities: Upper and lower extremities are warm and well perfused. Radial and dorsalis pedis pulses were 2+ b/l. Capillary refill assessed in UE was < 3 sec. Psych: Well-developed, well-nourished, appropriately dressed for occasion. Behavior is cooperative and appropriate. Affect is WNL. Insight is appropriate. Results & Data [facility] Vital Signs (Past 12 Hours) Vital Signs Temp Pulse Pulse Pulse Pulse Resp BP 04/02/21 04:40 04/02/21 04:16 36.5 C 80 18 04/02/21 03:04 59 L 04/02/21 01:17 64 04/01/21 23:12 36.7 C 74 16 04/01/21 22:19 78 04/01/21 21:57 81 04/01/21 21:32 85 04/01/21 19:30 36.5 C 76 18 172/87 H 04/01/21 19:22 86 15 BP Pulse Ox Pulse Ox Pulse Ox 04/02/21 04:40 94 04/02/21 04:16 156/79 H 90 04/02/21 03:04 94 04/02/21 01:17 93 04/01/21 23:12 167/98 H 95 04/01/21 22:19 04/01/21 21:57 94 04/01/21 21:32 90 04/01/21 19:30 99 04/01/21 19:22 97 Resident Activity Tracking Resident Involvement: Resident Care Provided Care Provided: Adult Hospital Medicine (1) CHF (congestive heart failure) Heart failure chronicity: acute on chronic Heart failure type: unspecified Qualified Code(s): I50.9 - Heart failure, unspecified (2) COPD (chronic obstructive pulmonary disease) COPD type: COPD with acute exacerbation Qualified Code(s): J44.1 - Chronic obstructive pulmonary disease with (acute) exacerbation
[2021-04-02 07:07] LABS: Albumin Level 3.3 gm/dl (3.4-5.0); BUN Creatinine Ratio 13.8 (10-20); Calcium 8.9 mg/dl (8.5-10.1); Creatinine Clr Calc Pharmacy 33.6 ml/min; Est GFR (African American) 26.4 ml/min; Est GFR (Non-African American) 22.8 ml/min; Potassium 3.9 mmol/L (3.5-5.1)
[2021-04-02 07:10] LABS: Bilirubin,Total 0.8 mg/dl (0.2-1); Globulin 3.3 gm/dl (2.5-4.0); Total Protein 6.6 gm/dl (6.4-8.2)
[2021-04-02] MEDS: BUDESONIDE 0.5 MG/2 ML VIAL (PULMICORT) NEB SCH ×2 (07:21→18:54)
[2021-04-02] MEDS: INSULIN ASPART 100 UNITS/ML 3 ML PEN SC SCH ×4 (08:28→21:04)
[2021-04-02] MEDS: FUROSEMIDE 20 MG TAB PO SCH (08:29)
[2021-04-02] MEDS: lisinopril 5 MG TAB PO SCH (08:29)
[2021-04-02] MEDS: UMECLIDINIUM/VILANTEROL 62.5/25MCG 7 PUFFS/INHALER INH SCH (08:30)
[2021-04-02] MEDS: predniSONE 20 MG TAB PO SCH (08:30)
[2021-04-02] MEDS: guaiFENesin 600 MG TABCR PO SCH ×2 (08:30→21:05)
[2021-04-02] MEDS ORDERED: METOPROLOL TARTRATE 50 MG TAB PO SCH (09:00)
[2021-04-02] MEDS ORDERED: AZITHROMYCIN 250 MG TAB PO SCH (09:00)
[2021-04-02] MEDS: ONDANSETRON INJ 2 MG/ML 2 ML VIAL IV PRN (15:23)
[2021-04-02] MEDS: ACETAMINOPHEN 325 MG TAB PO PRN (21:48)
[2021-04-03] MEDS: ONDANSETRON INJ 2 MG/ML 2 ML VIAL IV PRN (05:31)
[2021-04-03] MEDS: NITROGLYCERIN 2% OINTMENT 30GM TUBE EXT SCH (05:38)
[2021-04-03] MEDS: ENOXAPARIN INJ 40 MG/0.4 ML SYR SQ SCH (05:38)
[2021-04-03 06:20] LABS: Basophils # (auto) 0.01 K/uL (0-0.2); Basophils % (auto) 0.1 %; Hemoglobin 11.9 g/dL (12.0-16.0); Immature Granulocytes # (auto) 0.03 K/uL (0.00-0.02); Immature Granulocytes % (auto) 0.2 %; Lymphocytes # (auto) 1.82 K/uL (1.2-3.4); Lymphocytes % (auto) 13.6 %; Mean Corpuscular Hemoglobin 28.1 pg (25-34); Mean Corpuscular Hgb Conc 30.5 g/dL (32-36); Mean Corpuscular Volume 92.2 fL (80-100); Mean Platelet Volume 10.9 fL (7.4-10.4); Monocytes # (auto) 1.15 K/uL (0.11-0.59); Monocytes % (auto) 8.6 %; Neutrophils # (auto) 10.39 K/uL (1.4-6.5); Neutrophils % (auto) 77.5 %; Platelet Count 210 K/uL (130-400); RDW Coefficient of Variation 14.3 % (11.5-14.5); RDW Standard Deviation 47.7 fL (36.4-46.3); Red Blood Count 4.23 M/uL (4.2-5.4)
[2021-04-03 07:01] LABS: BUN Creatinine Ratio 19.5 (10-20); Calcium 8.7 mg/dl (8.5-10.1); Est GFR (African American) 26.7 ml/min; Potassium 3.6 mmol/L (3.5-5.1)
[2021-04-03] MEDS: BUDESONIDE 0.5 MG/2 ML VIAL (PULMICORT) NEB SCH ×2 (07:13→19:35)
[2021-04-03] MEDS: predniSONE 20 MG TAB PO SCH (08:42)
[2021-04-03] MEDS: INSULIN ASPART 100 UNITS/ML 3 ML PEN SC SCH ×4 (08:42→20:12)
[2021-04-03] MEDS: guaiFENesin 600 MG TABCR PO SCH ×2 (08:43→20:12)
[2021-04-03] MEDS: METOPROLOL SUCC 25MG EXT REL TAB PO SCH (08:43)
[2021-04-03] MEDS: UMECLIDINIUM/VILANTEROL 62.5/25MCG 7 PUFFS/INHALER INH SCH (08:43)
--- NOTE | 2021-04-03 09:18 | XRay Report ---
SINGLE VIEW CHEST CLINICAL HISTORY: Hypoxia. FINDINGS: An AP, portable, upright chest radiograph is compared to chest x-ray and chest CT dated 03/31. The heart is enlarged noting atherosclerotic calcification of the thoracic aorta. Pulmonary va scular congestion persists. Bilateral airspace opacities are unchanged. No large pleural effusion or pneumothorax is seen. The skeletal structures are osteopenic. The bony thorax is grossly intact. IMPRESSION: 1. Cardiomegaly with evidence of congestive failure. This is similar to the 03/31/2021 examination. 2. Bilateral airspace opacities likely represent pulmonary edema. Correlate clinically for evidence o f a superimposed infectious/inflammatory pneumonitis. ACT 112: Negative or not required by law. Electronically signed by: Huey Walsh M.D. 04/03/2021 9:16 AM
--- NOTE | 2021-04-03 12:12 | Hospitalist Progress Note ---
Date of Service April 03, 2021 Assessment & Plan (1) Acute respiratory failure with hypoxia and hypercapnia: Plan: Mikayla is a 60-year-old female with a history of HTN and tobacco use who presented to [facility] with acute (likely on-chronic) hypoxemic, hypercapnic res piratory failure, thought to be secondary to COPD exacerbation and possible newly-discovered CHF. She is hemodynamically stable. In the past 24 hours, she did report episodes of diarrhea, nausea/vomiting, and worsening oxygenation. A CXR was obtained, which showed stability/mild improvement from previous. A covid swab was repeated and it was negative. Acute Hypoxemic, Hypercapnic Respiratory Failure -- much improved * Reporting several weeks of worsening CHAMBERLAIN, generalized SOB, +orthopnea, +peripheral edema * In ED, found to be hypoxemic to 86% with pCO2 of 66 on ABG * CTA-Chest revealing of cardiomegaly, changes c/w pHTN, diffuse septal thickening c/w congestive failure or pneumonitis, small pleural effusions, small pulmonary nodules, mild aneurysm dilatation of ascending thoracic aorta * Suspect ventilation/oxygenation issues are due to mixed COPD, CHF worsening / exacerbation * Possible component of NELSON too --> nocturnal pulse oximetry ordered - >25 hypoxic events totaling >30 min on oximetry: recommend formal sleep study as outpatient * s/p BiPAP --> now stable on 3L via oxymask * As below Heart Failure with Reduced Ejection Fraction -- LVEF 45-50% * Clinically reporting worsening CHAMBERLAIN, SOB, +orthopnea, ?+PND x several weeks and findings of volume overload on physical exam as well as HTN * TTE 04/01: LVEF 45-50% with global LV hypokinesis, elevated pHTN, mild- moderate aortic and tricuspid regurgitation * Adequately responded to diuresis * Initiate metoprolol succinate 25mg PO qAM * Hold Lasix 20mg PO daily given BJORN * Hold initiation of ACEI (lisinopril 5) given BJORN -- restart when resolved * Recommend exercise stress test as outpatient * Monitor I&Os, daily weights * Maintain K > 4, Mg > 2, Phos > 3 Elevated Troponin -- downtrending as of 1730 on 04/01 * Admission troponin 0.027 --> peaked at 0.5, downtrended at 1730 on 04/01 * No acute repolarization or conduction abnormalities appreciated on arrival ECG * Suspect secondary to demand ischemia in setting of HTN, COPD, possibly acute CHF * As above: recommend exercise stress test as outpatient COPD * Patient with known smoking history (0.75ppd x 43yr = 32 pack-year) * Transition to prednisone taper (40mg) x 10 days (start 04/01) * s/p azithromycin x 4 days * Start Anoro Ellipta * Continue mucociliary clearance - guaifenesin * Pulmicort Respules 0.5 mg inh b.i.d. * DuoNebs p.r.n. * Recommend PFTs as outpatient HTN * On admission, BPs ranging between 190s-220s/110s-140s * Transition from diltiazem --> metoprolol succinate 25mg daily * Hold ACEI and lasix in setting of BJORN * Without symptoms at present BJORN * Unknown Cr baseline * On admission, BUN 19 / Cr 1.39 -- while initially improved, did worsen to 32/2.29 AM of 04/02. Cr today unchanged at 2.27 despite holding lasix. * Suspect prerenal in setting of acute volume overload and diuresis * Will monitor. Hold Lasix, ACEI, avoid nephrotoxins Code: FULL CODE Dispo: MS/Tele PPX: Lovenox Diet: Cardiac (2) CHF (congestive heart failure): (3) COPD (chronic obstructive pulmonary disease): (4) Renal insufficiency: (5) Hyperglycemia: (6) Morbid obesity with BMI of 40.0-44.9, adult: (7) Tobacco use disorder: Admission and Anticipated Discharge Date Admission Date: April 01, 2021 Supervising Physician Co-Signing Physician Notes I also saw the patient for lynch portions of the history and physical examination. She is not feeling quite as well this morning. She had an episode of emesis and generally describes an upset stomach. She is picking at her breakfast although admits to not having much of an appetite. She did have some oxygen desaturations at the time of the emesis; she was put on oxygen mask at 3 L/min, alert the time of our exam, she has removed in order to eat. Exam 164/98, 60, 19, 36.8, 95% on 3 L/min Seated in bed. No acute distress. HEENT unremarkable. Heart regular rate and rhythm. Lungs are clear with nonlabored respirations Abdomen is generally soft and nontender Data White blood cell count 13.4, hemoglobin 11.9 BUN 44, creatinine 2.27 Impression and Plan I agree with the impression and plan as noted in the resident documentation. Acute hypoxemic, hypercapnic respiratory failure Probably multifactorial, COPD, acute on chronic CHF, and likely a component of obstructive sleep apnea Continue diuresis with PO Lasix. Nocturnal pulse oximetry test suggestive of NELSON, will need formal sleep study as outpatient Gastrointestinal upset Add H2 jany; suspect this could be secondary to steroids and other medications Elevated troponin Suspect demand ischemia Discussed need for outpatient cardiology referral. Elevated blood pressure Toprol 25 XL added yesterday, although hesitant to further titrate due to her lung disease and low resting heart rate (60) Titration of KEMAR inhibitor probably not feasible at this time due to elevated creatinine. Will add Norvasc 5 mg p.o. daily, first dose now and then in a.m. Discontinue nitroglycerin patch COPD Extensive smoking history Oral prednisone Complete course azithromycin Acute kidney injury Uncertain baseline, Suspect second to diuresis We will hold her low-dose lisinopril for time being Subjective Patient reported several episodes of diarrhea yesterday - then had an episode of non-bloody emesis this am before breakfast. The vomiting occurred after she received a nebulizer treatment. Of note, nursing also reported a drop in her oxygen saturation from 94 to 88 after the episode of emesis. Review of Systems Constitutional: No fever or chills Physical Exam Constitutional: WD/WN, vitals as above + obese and cooperative; no acute distress Eyes: + anicteric sclerae ENMT: external ear and nose normal, oropharynx normal Neck: normal visual inspection and trachea midline Respiratory: normal respiratory effort, lungs clear to auscultation Cardiovascular: RRR, no murmur, no edema Heart Sounds: normal S1 and normal S2 Gastrointestinal (Abdomen): normal bowel sounds, soft, nontender, no hepatosplenomegaly Musculoskeletal: Head/Neck/Chest: normocephalic and head atraumatic Skin: no rashes, warm and dry Psychiatric: A+Ox3, euthymic affect Results & Data Results & Data ([facility]) Vital Signs (Past 12 Hours) Vital Signs Temp Pulse Resp BP BP Pulse Ox Pulse Ox 04/03/21 11:11 36.7 C 67 19 164/98 H 93 04/03/21 07:47 36.8 C 79 20 195/122 H 88 L 04/03/21 07:13 77 16 94 04/03/21 05:07 37.1 C 75 18 171/97 H 91 04/03/21 04:00 91 Resident Activity Tracking Resident Involvement: Resident Care Provided Care Provided: Adult Hospital Medicine (1) CHF (congestive heart failure) Heart failure chronicity: acute on chronic Heart failure type: unspecified Qualified Code(s): I50.9 - Heart failure, unspecified (2) COPD (chronic obstructive pulmonary disease) COPD type: COPD with acute exacerbation Qualified Code(s): J44.1 - Chronic obstructive pulmonary disease with (acute) exacerbation
[2021-04-03] MEDS ORDERED: FAMOTIDINE 20 MG in SYRINGE 3 ML IV ONE (12:30)
[2021-04-03] MEDS: amLODIPine BESYLATE 5 MG TAB PO SCH (16:55)
[2021-04-04] MEDS: ENOXAPARIN INJ 40 MG/0.4 ML SYR SQ SCH (05:41)
[2021-04-04 07:18] LABS: Basophils # (auto) 0.01 K/uL (0-0.2); Basophils % (auto) 0.1 %; Eosinophils # (auto) 0.02 K/uL (0-0.5); Eosinophils % (auto) 0.2 %; Hematocrit (blood only) 40.9 % (37-47); Hemoglobin 12.7 g/dL (12.0-16.0); Immature Granulocytes # (auto) 0.03 K/uL (0.00-0.02); Immature Granulocytes % (auto) 0.3 %; Lymphocytes # (auto) 1.33 K/uL (1.2-3.4); Lymphocytes % (auto) 11.4 %; Mean Corpuscular Hemoglobin 29.1 pg (25-34); Mean Corpuscular Hgb Conc 31.1 g/dL (32-36); Mean Corpuscular Volume 93.6 fL (80-100); Mean Platelet Volume 10.9 fL (7.4-10.4); Monocytes # (auto) 1.31 K/uL (0.11-0.59); Monocytes % (auto) 11.2 %; Neutrophils # (auto) 8.95 K/uL (1.4-6.5); Neutrophils % (auto) 76.8 %; Platelet Count 167 K/uL (130-400); RDW Coefficient of Variation 14.1 % (11.5-14.5); RDW Standard Deviation 48.2 fL (36.4-46.3); Red Blood Count 4.37 M/uL (4.2-5.4); White Blood Count 11.65 K/uL (4.8-10.8)
[2021-04-04] MEDS: BUDESONIDE 0.5 MG/2 ML VIAL (PULMICORT) NEB SCH ×2 (07:27→22:34)
[2021-04-04 07:46] LABS: BUN Creatinine Ratio 18.3 (10-20); Calcium 8.6 mg/dl (8.5-10.1); Creatinine Clr Calc Pharmacy 42.2 ml/min; Est GFR (African American) 35.1 ml/min; Est GFR (Non-African American) 30.3 ml/min; Potassium 3.5 mmol/L (3.5-5.1)
[2021-04-04 07:49] LABS: C Reactive Protein 3.95 mg/dl (0-0.29)
[2021-04-04] MEDS: METOPROLOL SUCC 25MG EXT REL TAB PO SCH (07:53)
[2021-04-04] MEDS: predniSONE 20 MG TAB PO SCH (07:53)
[2021-04-04] MEDS: amLODIPine BESYLATE 5 MG TAB PO SCH (07:53)
[2021-04-04] MEDS: guaiFENesin 600 MG TABCR PO SCH ×2 (07:53→20:53)
[2021-04-04] MEDS: UMECLIDINIUM/VILANTEROL 62.5/25MCG 7 PUFFS/INHALER INH SCH (07:54)
[2021-04-04] MEDS: INSULIN ASPART 100 UNITS/ML 3 ML PEN SC SCH ×4 (07:55→20:53)
[2021-04-04] MEDS: FUROSEMIDE 20 MG TAB PO SCH (07:56)
--- NOTE | 2021-04-04 08:43 | Hospitalist Progress Note ---
Date of Service April 04, 2021 Assessment & Plan (1) Acute respiratory failure with hypoxia and hypercapnia: Plan: Mikayla is a 60-year-old female with a history of HTN and tobacco use who presented to [facility] with acute (likely on-chronic) hypoxemic, hypercapnic res piratory failure, thought to be secondary to COPD exacerbation and possible newly-discovered CHF. She is hemodynamically stable. In the past 24 hours, she did report episodes of diarrhea, nausea/vomiting, and worsening oxygenation. A CXR was obtained, which showed stability/mild improvement from previous. A covid swab was repeated and it was negative. Acute Hypoxemic, Hypercapnic Respiratory Failure -- improved, and now worsening * Reporting several weeks of worsening CHAMBERLAIN, generalized SOB, +orthopnea, +peripheral edema * In ED, found to be hypoxemic to 86% with pCO2 of 66 on ABG * CTA-Chest revealing of cardiomegaly, changes c/w pHTN, diffuse septal thickening c/w congestive failure or pneumonitis, small pleural effusions, small pulmonary nodules, mild aneurysm dilatation of ascending thoracic aorta * Suspect ventilation/oxygenation issues are due to mixed COPD, CHF worsening / exacerbation * Possible component of NELSON too --> nocturnal pulse oximetry ordered - >25 hypoxic events totaling >30 min on oximetry: recommend formal sleep study as outpatient * Procal, COVID-19 ordered: procal (-), COVID (-), CRP mildly elevated to 3.95 -- lower suspicion for PNA * s/p BiPAP --> Requiring 3-5L OxyMask * Incentive spirometry * As below Heart Failure with Reduced Ejection Fraction -- LVEF 45-50% * Clinically reporting worsening CHAMBERLAIN, SOB, +orthopnea, ?+PND x several weeks and findings of volume overload on physical exam as well as HTN * TTE 04/01: LVEF 45-50% with global LV hypokinesis, elevated pHTN, mild- moderate aortic and tricuspid regurgitation * Initially - adequate response to diuresis * Metoprolol succinate 25mg PO qAM * Resume Lasix 20mg qAM * Hold initiation of ACEI (lisinopril 5) given BJORN -- restart when resolved * Recommend exercise stress test as outpatient * Monitor I&Os, daily weights * Maintain K > 4, Mg > 2, Phos > 3 COPD * Patient with known smoking history (0.75ppd x 43yr = 32 pack-year) * Transition to prednisone taper (40mg) x 10 days (start 04/01) -- 40 > 40 > 20 > 20 > 10 > 10 > 5 > 5 * s/p azithromycin x 4 days * Start Anoro Ellipta * Guaifenesin daily * Pulmicort Respules 0.5 mg inh b.i.d. * DuoNebs q8h x 1 day - p.r.n. otherwise * Recommend PFTs as outpatient Elevated Troponin -- downtrending as of 1730 on 04/01 * Admission troponin 0.027 --> peaked at 0.5, downtrended at 1730 on 04/01 * No acute repolarization or conduction abnormalities appreciated on arrival ECG * Suspect secondary to demand ischemia in setting of HTN, COPD, possibly acute CHF * As above: recommend exercise stress test as outpatient HTN * On admission, BPs ranging between 190s-220s/110s-140s * Transition from diltiazem --> metoprolol succinate 25mg daily * Amlodipine 5mg --> 7.5mg / day * Lasix 20 / day, as above * Hold ACEI in setting of BJORN * Without symptoms at present BJORN -- BUN 33 / Cr 1.8 on 04/04 -- improved * Unknown Cr baseline * On admission, BUN 19 / Cr 1.39 -- while initially improved, did worsen to 32/2.29 AM of 04/02 * Suspect prerenal in setting of acute volume overload and diuresis (BUN/Cr > 20) * Will monitor. Hold ACEI, avoid nephrotoxins Code: FULL CODE Dispo: MS/Tele PPX: Lovenox Diet: Cardiac (2) CHF (congestive heart failure): (3) COPD (chronic obstructive pulmonary disease): (4) Renal insufficiency: (5) Hyperglycemia: (6) Morbid obesity with BMI of 40.0-44.9, adult: (7) Tobacco use disorder: Admission and Anticipated Discharge Date Admission Date: April 01, 2021 Supervising Physician Co-Signing Physician Notes I also saw the patient for lynch portions of the history and physical examination. She is feeling little bit better today. She still has an oxygen requirement however. Really describes no shortness of breath at rest. Still denies any chest pain. She has recovered her personal belongings from her vehicle, and she is working on arrangements for transfer back to [place] after discharge. Exam 148/79, 69, 18, 36.6, 93% on nasal cannula 2 L/min Seated in bed. No acute distress. HEENT unremarkable. Heart regular rate and rhythm. Lungs are clear with nonlabored respirations Abdomen is generally soft and nontender Data White blood count 1.65, platelet count 167. BUN 33, creatinine 1.81 Impression and Plan I agree with the impression and plan as noted in the resident documentation. Acute hypoxemic, hypercapnic respiratory failure Probably multifactorial, COPD, acute on chronic CHF, and likely a component of obstructive sleep apnea Continue diuresis with PO Lasix (Lasix was held last 2 days secondary to elevated creatinine). Nocturnal pulse oximetry test suggestive of NELSON, will need formal sleep study as outpatient Repeat chest x-ray in a.m. Gastrointestinal upset Add H2 jany; suspect this could be secondary to steroids and other medications Elevated troponin Suspect demand ischemia Discussed need for outpatient cardiology referral. Elevated blood pressure Toprol 25 XL added yesterday, although hesitant to further titrate due to her lung disease and low resting heart rate (60) Titration of KEMAR inhibitor probably not feasible at this time due to elevated creatinine. Will add Norvasc 5 mg p.o. daily; can titrate Norvasc if needed Discontinue nitroglycerin patch COPD Extensive smoking history Oral prednisone Complete course azithromycin Acute kidney injury Uncertain baseline, Suspect second to diuresis Repeat BMP in a.m. We will hold her low-dose lisinopril for time being Subjective NAEO. Still required 3-5L. Says breathing actually feels fine - no SOB, chest pain, palpitations. Does feel weak on her feet, however. Nausea resolved. Appetite much improved. No chills or NS overnight. No fever. Review of Systems Review of Systems: as per HPI Physical Exam Physical Exam: General: 60-year-old female who is lying back in her hospital bed relaxed upon my arrival. She is in no acute distress. She has OXYMASK on. NAD. HEENT: NCAT. Eyes - Sclera are white, anicteric, and without injection. Mouth - MMM with no tonsillar edema or exudates. Cardiac: Normal rate and regular rhythm; S1 and S2 present with no murmurs, rubs, or gallops. Pulmonary: Oxygen mask in place. Good respiratory effort with symmetric expansion of the chest. No use of accessory muscles. Lung sounds diminished bilaterally, of what could be heard, no significant crackles or wheezes heard. Abdominal: Normoactive bowel sounds. Abdomen was soft, nondistended, and non- tender to palpation. Extremities: Upper and lower extremities are warm and well perfused. Radial and dorsalis pedis pulses were 2+ b/l. Trace to 1+ pitting edema in the lower extremities bilaterally. Psych: Well-developed, well-nourished, appropriately dressed for occasion. Behavior is cooperative and appropriate. Affect is WNL. Insight is appropriate. Results & Data Results & Data ([facility]) Vital Signs (Past 12 Hours) Vital Signs Temp Pulse Resp BP BP Pulse Ox 04/04/21 07:27 60 18 98 04/04/21 07:13 36.5 C 75 18 170/84 H 98 04/04/21 03:45 36.8 C 61 18 173/93 H 92 04/03/21 22:54 36.5 C 72 18 164/99 H 90 Resident Activity Tracking Resident Involvement: Resident Care Provided Care Provided: Adult Hospital Medicine (1) CHF (congestive heart failure) Heart failure chronicity: acute on chronic Heart failure type: unspecified Qualified Code(s): I50.9 - Heart failure, unspecified (2) COPD (chronic obstructive pulmonary disease) COPD type: COPD with acute exacerbation Qualified Code(s): J44.1 - Chronic obstructive pulmonary disease with (acute) exacerbation
[2021-04-04] MEDS ORDERED: amLODIPine BESYLATE 5 MG TAB PO STA (08:54)
[2021-04-04] MEDS: ALBUT/IPRATROP 3MG/0.5MG NEB 3 ML VIAL NEB SCH ×3 (11:51→22:34)
[2021-04-05] MEDS: ENOXAPARIN INJ 40 MG/0.4 ML SYR SQ SCH (05:39)
[2021-04-05] MEDS: BUDESONIDE 0.5 MG/2 ML VIAL (PULMICORT) NEB SCH ×2 (07:14→23:07)
[2021-04-05] MEDS: ALBUT/IPRATROP 3MG/0.5MG NEB 3 ML VIAL NEB SCH ×3 (07:14→23:07)
--- NOTE | 2021-04-05 08:09 | XRay Report ---
XR chest 1V portable INDICATION: MN ^Y ^ADS ^dyspnea. TECHNIQUE: Single frontal radiograph of the chest was obtained. Comparison: Comparison is made to Chest 1 view 03/15/2021 FINDINGS: No lines and tubes are seen. The cardiomediastinal silhouette is stable. Lungs are clear. Previously noted cephalization of the vasculature is less evident on today's exam. Residual interstitial thicken ing is seen which may be chronic. No evidence of pleural effusion or pneumothorax. IMPRESSION: Improving pulmonary edema. ACT 112: Negative or not required by law. Electronically signed by: Alberto Way M.D. 04/05/2021 8:08 AM
[2021-04-05 08:21] LABS: Basophils # (auto) 0.01 K/uL (0-0.2); Basophils % (auto) 0.1 %; Eosinophils # (auto) 0.06 K/uL (0-0.5); Eosinophils % (auto) 0.7 %; Hematocrit (blood only) 37.9 % (37-47); Hemoglobin 11.8 g/dL (12.0-16.0); Immature Granulocytes # (auto) 0.02 K/uL (0.00-0.02); Immature Granulocytes % (auto) 0.2 %; Lymphocytes # (auto) 1.51 K/uL (1.2-3.4); Lymphocytes % (auto) 17.1 %; Mean Corpuscular Hemoglobin 28.6 pg (25-34); Mean Corpuscular Hgb Conc 31.1 g/dL (32-36); Mean Platelet Volume 10.5 fL (7.4-10.4); Monocytes % (auto) 9.1 %; Neutrophils # (auto) 6.42 K/uL (1.4-6.5); Neutrophils % (auto) 72.8 %; Platelet Count 162 K/uL (130-400); RDW Standard Deviation 46.9 fL (36.4-46.3); Red Blood Count 4.12 M/uL (4.2-5.4); White Blood Count 8.82 K/uL (4.8-10.8)
[2021-04-05] MEDS: METOPROLOL SUCC 25MG EXT REL TAB PO SCH (08:29)
[2021-04-05] MEDS: guaiFENesin 600 MG TABCR PO SCH ×2 (08:29→20:27)
[2021-04-05] MEDS: FUROSEMIDE 20 MG TAB PO SCH (08:29)
[2021-04-05] MEDS: amLODIPine BESYLATE 5 MG TAB PO SCH (08:29)
[2021-04-05] MEDS: lisinopril 5 MG TAB PO SCH (08:29)
[2021-04-05] MEDS: INSULIN ASPART 100 UNITS/ML 3 ML PEN SC SCH ×4 (08:31→21:11)
[2021-04-05] MEDS: predniSONE 20 MG TAB PO SCH (08:32)
[2021-04-05] MEDS: UMECLIDINIUM/VILANTEROL 62.5/25MCG 7 PUFFS/INHALER INH SCH (08:32)
[2021-04-05 09:01] LABS: BUN Creatinine Ratio 20.2 (10-20); Calcium 8.7 mg/dl (8.5-10.1); Creatinine Clr Calc Pharmacy 47.4 ml/min; Est GFR (African American) 40.4 ml/min; Est GFR (Non-African American) 34.9 ml/min; Potassium 3.4 mmol/L (3.5-5.1)
[2021-04-05] MEDS ORDERED: POTASSIUM CHLORIDE CRTAB 20 MEQ TABCR PO STA (11:42)
--- NOTE | 2021-04-05 11:42 | Hospitalist Progress Note ---
Date of Service April 05, 2021 Assessment & Plan (1) Acute respiratory failure with hypoxia and hypercapnia: Plan: 60 yo F PMHx HTN and tobacco use who presented to [facility] with acute hypoxic, hypercapnic respiratory failure, thought to be secondary to COPD exacerbation and newly-discovered CHF requiring now 2LNC. Acute Hypoxic, Hypercapnic Respiratory Failure -- improving * Reporting several weeks of worsening CHAMBERLAIN, generalized SOB, orthopnea, peripheral edema. * In ED, found to be hypoxic to 86% with pCO2 of 66 on ABG. * Procalcitonin, COVID-19 ordered: procal (-), COVID (-), CRP mildly elevated to 3.95 -- low suspicion for active pneumonia. * CTA Chest revealed cardiomegaly, changes c/w pHTN, diffuse septal thickening c/w congestive failure or pneumonitis, small pleural effusions, small pulmonary nodules, mild aneurysm dilatation of ascending thoracic aorta. * Suspect ventilation/oxygenation issues are due to mixed COPD, CHF worsening / exacerbation. * Possible component of NELSON too --> nocturnal pulse oximetry performed: - >25 hypoxic events totaling >30 min on oximetry: recommend formal sleep study as outpatient. * s/p BiPAP for short duration --> Now requiring 2LNC. Continue to wean as able, with Care Management assistance should she continue to need supplemental oxygen. * Continue incentive spirometry. * Care of HFrEF and COPD as described below. Heart Failure with Reduced Ejection Fraction -- LVEF 45-50% * Clinically reporting worsening CHAMBERLAIN, SOB, +orthopnea, and findings of volume overload on physical exam. * TTE 04/01: LVEF 45-50% with global LV hypokinesis, pulmonary HTN, mild- moderate aortic and tricuspid regurgitation. * Has had reasonable response to diuresis, and XR Chest today with interval improvement in fluid overload. * Continue Lasix 20mg qAM while monitoring for worsening BJORN. * Hold initiation of ACEI (lisinopril 5) given BJORN -- start when improved. Continue metoprolol succinate 25mg PO qAM. * Monitor I&Os, daily standing weights. Continue low sodium diet. * Maintain K > 4, Mg > 2, Phos > 3. * Recommend exercise stress test as outpatient. COPD: * Patient with known smoking history (0.75ppd x 43yr = 32 pack years). * Transitioned to prednisone taper (40mg) x 10 days (start 04/01) -- 40 > 40 > 20 > 20 > 10 > 10 > 5 > 5. * s/p azithromycin x 4 days. * Continue Anoro Ellipta started on admission. Duonebs as needed. * Guaifenesin daily. * Pulmicort Respules 0.5 mg b.i.d. * Recommend PFTs as outpatient. Elevated Troponin -- downtrending as of 1730 on 04/01 * Admission troponin 0.027 --> peaked at 0.5, downtrended at 1730 on 04/01. * No acute repolarization or conduction abnormalities appreciated on EKG. * Suspect secondary to demand ischemia in setting of HTN, COPD, CHF exacerbation. * As above: recommend exercise stress test as outpatient given labwork and findings on Echo. HTN: * On admission, BPs ranging between 190s-220s/110s-140s. * Currently on metoprolol succinate 25mg daily. * Continue amlodipine 7.5mg daily. * Lasix 20 daily, as above. * Hold ACEI in setting of BJORN; start when able. BJORN -- BUN 33 / Cr 1.6 on 04/05 -- improving * Unknown Cr baseline; on admission Cr 1.39 -> 2.29 -> 1.6 today. * Will monitor. Hold ACEI, avoid nephrotoxins. * Would be suspicious of fluid overload as potential contributor to BJORN given continued improvement with daily PO Lasix, though odd that BJORN worsened then improved on static doses of Lasix since 04/01. Code: FULL CODE Dispo: Telemetry PPX: Lovenox Diet: Heart Healthy, low sodium (2) CHF (congestive heart failure): (3) COPD (chronic obstructive pulmonary disease): (4) Renal insufficiency: (5) Hyperglycemia: (6) Morbid obesity with BMI of 40.0-44.9, adult: (7) Tobacco use disorder: Admission and Anticipated Discharge Date Admission Date: April 01, 2021 Supervising Physician Co-Signing Physician Notes Patient seen and examined with PGY-3 Dr. Herrmann. Agree with history, exam findings, assessment and plan of care. In brief, Mikayla is a 60 year old with history of HTN admitted with new acute hyposemic, hypercapneic respiratory failure secondary to HFrEF and COPD. Overall, starting to feel better; however, feeling a bit overwhelmed with the new medical issues and also the logistics of getting her car. She was able to walk in the hallway with PT without feeling short of breath. Did feel a bit more unsteady on her feet but feels this is more due to not being up and out of bed much. Vital signs and nursing notes reviewed. Breathing comfortably on 2L NC. Breath sounds-- fair air movement. soft crackles at the bases. Heart with regular rate and rhythm. Labs and imaging reviewed. 1. Acute hypoxemic, hypercapnic respiratory failture. Likely a mix of COPD and CHF, with possible NELSON. Weaning O2 as able. 2. HFrEF. EF 45-50%. left ventricle hypokinesis. Continue metoprolol 25mg, lasix 20mg. 3. COPD. 32 pack year history. Continue pred taper. Already completed azithro. Continue Anoro Ellipta, pulmicort. Will need PFTs as an outpatient. 4. Elevated troponin. Due to demand. Peaked and downtrended. 5. HTN. BPs are still mildly elevated. Continue metoprolol 25mg, amlodipine 7.5mg and lasix. Holding KEMAR, but if she has CKD will need to start this at some point for renoprotection. Dispo: pending clinical improvement. Subjective Patient is without concerns or complaints today save for the desire to be able to get off of oxygen. Feels well and without SOB on 2LNC today, including while walking with PT. She is from [place] and stopped here while traveling to [place], and so all of her current medical care takes place in [place]. Review of Systems Review of Systems: All systems reviewed & are unremarkable except as noted in HPI & below Constitutional: no fever, no chills and no malaise Respiratory: no cough and no dyspnea (on 2LNC) Cardiovascular: no chest pain and no palpitations Gastrointestinal: no abdominal pain, no constipation and no diarrhea/loose stools Genitourinary: no dysuria and no hematuria Physical Exam Constitutional: WD/WN, vitals as above Respiratory: normal respiratory effort, lungs clear to auscultation Cardiovascular: Rate/Rhythm: regular rate and regular rhythm Heart Sounds: no murmur Extremities: + edema (trace bilateral LE edema) Gastrointestinal (Abdomen): normal bowel sounds, soft, nontender, no hepatosplenomegaly Skin: no rashes, warm and dry Psychiatric: A+Ox3, euthymic affect Results & Data Results & Data ([facility]) Vital Signs (Past 12 Hours) Vital Signs Temp Pulse Resp BP BP Pulse Ox 04/05/21 10:48 36.5 C 58 L 20 158/90 H 91 04/05/21 10:18 96 04/05/21 07:41 36.6 C 62 20 163/85 H 90 04/05/21 07:15 84 18 91 04/05/21 03:47 37.0 C 54 L 18 142/86 H 94 04/04/21 23:52 36.8 C 60 18 151/80 H 97 Resident Activity Tracking Resident Involvement: Resident Care Provided Care Provided: Adult Hospital Medicine (1) CHF (congestive heart failure) Heart failure chronicity: acute on chronic Heart failure type: unspecified Qualified Code(s): I50.9 - Heart failure, unspecified (2) COPD (chronic obstructive pulmonary disease) COPD type: COPD with acute exacerbation Qualified Code(s): J44.1 - Chronic obstructive pulmonary disease with (acute) exacerbation
[2021-04-06] MEDS: ENOXAPARIN INJ 40 MG/0.4 ML SYR SQ SCH (05:26)
[2021-04-06 06:34] LABS: Basophils # (auto) 0.01 K/uL (0-0.2); Basophils % (auto) 0.1 %; Eosinophils # (auto) 0.14 K/uL (0-0.5); Eosinophils % (auto) 1.7 %; Hematocrit (blood only) 37.8 % (37-47); Hemoglobin 11.7 g/dL (12.0-16.0); Immature Granulocytes # (auto) 0.03 K/uL (0.00-0.02); Immature Granulocytes % (auto) 0.4 %; Lymphocytes # (auto) 1.53 K/uL (1.2-3.4); Lymphocytes % (auto) 18.4 %; Mean Corpuscular Hemoglobin 28.6 pg (25-34); Mean Corpuscular Volume 92.4 fL (80-100); Mean Platelet Volume 10.7 fL (7.4-10.4); Monocytes # (auto) 0.77 K/uL (0.11-0.59); Monocytes % (auto) 9.3 %; Neutrophils # (auto) 5.82 K/uL (1.4-6.5); Neutrophils % (auto) 70.1 %; Platelet Count 169 K/uL (130-400); RDW Coefficient of Variation 13.9 % (11.5-14.5); RDW Standard Deviation 46.5 fL (36.4-46.3); Red Blood Count 4.09 M/uL (4.2-5.4)
[2021-04-06 07:02] LABS: BUN Creatinine Ratio 19.5 (10-20); Calcium 8.9 mg/dl (8.5-10.1); Creatinine Clr Calc Pharmacy 44.5 ml/min; Est GFR (African American) 37.6 ml/min; Est GFR (Non-African American) 32.4 ml/min; Potassium 3.8 mmol/L (3.5-5.1)
[2021-04-06] MEDS: ALBUT/IPRATROP 3MG/0.5MG NEB 3 ML VIAL NEB SCH ×3 (07:22→22:47)
[2021-04-06] MEDS: BUDESONIDE 0.5 MG/2 ML VIAL (PULMICORT) NEB SCH ×2 (07:22→19:39)
[2021-04-06] MEDS: predniSONE 20 MG TAB PO SCH (08:03)
[2021-04-06] MEDS: UMECLIDINIUM/VILANTEROL 62.5/25MCG 7 PUFFS/INHALER INH SCH (08:03)
[2021-04-06] MEDS: guaiFENesin 600 MG TABCR PO SCH ×2 (08:03→20:55)
[2021-04-06] MEDS: lisinopril 5 MG TAB PO SCH (08:03)
[2021-04-06] MEDS: METOPROLOL SUCC 25MG EXT REL TAB PO SCH (08:03)
[2021-04-06] MEDS: FUROSEMIDE 20 MG TAB PO SCH (08:04)
[2021-04-06] MEDS: amLODIPine BESYLATE 5 MG TAB PO SCH (08:04)
--- NOTE | 2021-04-06 08:11 | Hospitalist Progress Note ---
Date of Service April 06, 2021 Assessment & Plan (1) Acute respiratory failure with hypoxia and hypercapnia: Plan: 60 yo F PMHx HTN and tobacco use who presented to [facility] with acute hypoxic, hypercapnic respiratory failure, thought to be secondary to COPD exacerbation and newly-discovered CHF requiring now 2LNC. Acute Hypoxic, Hypercapnic Respiratory Failure -- improving * Reporting several weeks of worsening CHAMBERLAIN, generalized SOB, orthopnea, peripheral edema. * In ED, found to be hypoxic to 86% with pCO2 of 66 on ABG. * Procalcitonin, COVID-19 ordered: procal (-), COVID (-), CRP mildly elevated to 3.95 -- low suspicion for active pneumonia. * CTA Chest revealed cardiomegaly, changes c/w pHTN, diffuse septal thickening c/w congestive failure or pneumonitis, small pleural effusions, small pulmonary nodules, mild aneurysm dilatation of ascending thoracic aorta. * Suspect ventilation/oxygenation issues are due to mixed COPD, CHF worsening / exacerbation. * Possible component of NELSON too --> nocturnal pulse oximetry performed: - >25 hypoxic events totaling >30 min on oximetry: recommend formal sleep study as outpatient. * s/p BiPAP for short duration --> Now requiring 2LNC. Continue to wean as able, with Care Management assistance should she continue to need supplemental oxygen. * Continue incentive spirometry. * Care of HFrEF and COPD as described below. Heart Failure with Reduced Ejection Fraction -- LVEF 45-50% * Clinically reporting worsening CHAMBERLAIN, SOB, +orthopnea, and findings of volume overload on physical exam. * TTE 04/01: LVEF 45-50% with global LV hypokinesis, pulmonary HTN, mild- moderate aortic and tricuspid regurgitation. * Has had reasonable response to diuresis, and XR Chest today with interval improvement in fluid overload. * Continue Lasix 20mg qAM while monitoring for worsening BJORN. * Continue lisinopril 5mg daily * Metoprolol changed to 50mg daily as below * Monitor I&Os, daily standing weights. Continue low sodium diet. * Maintain K > 4, Mg > 2, Phos > 3. * Recommend exercise stress test as outpatient. Atrial fibrillation -- new diagnosis * Patient developed asymptomatic afib on telemetry today * CHADS-VASC score of 3 making her candidate for anticoagulation * Start Eliquis 2.5 mg BID due to current creatinine above 1.5 * Monitor kidney function in case this improves and dose can be increased to 5mg BID * Was on metoprolol succinate 25mg daily -- gave extra 25mg today and changed daily dosing to 50mg starting tomorrow * Currently rate-controlled COPD: * Patient with known smoking history (0.75ppd x 43yr = 32 pack years). * Transitioned to prednisone taper (40mg) x 10 days (start 04/01) -- 40 > 40 > 20 > 20 > 10 > 10 > 5 > 5. * s/p azithromycin x 4 days. * Continue Anoro Ellipta started on admission. Duonebs as needed. * Guaifenesin daily. * Pulmicort Respules 0.5 mg b.i.d. * Recommend PFTs as outpatient. Elevated Troponin -- downtrending as of 1730 on 04/01 * Admission troponin 0.027 --> peaked at 0.5, downtrended at 1730 on 04/01. * No acute repolarization or conduction abnormalities appreciated on EKG. * Suspect secondary to demand ischemia in setting of HTN, COPD, CHF exacerbation. * As above: recommend exercise stress test as outpatient given labwork and findings on Echo. HTN: * On admission, BPs ranging between 190s-220s/110s-140s. * Currently on metoprolol succinate 25mg daily. * Continue amlodipine 7.5mg daily. * Lasix 20 daily, as above. * Continue lisinopril 5mg daily BJORN * Unknown Cr baseline; on admission Cr 1.39 -> 2.29 -> 1.6 -> 1.71 * Will monitor. Avoid nephrotoxins. * Would be suspicious of fluid overload as potential contributor to BJORN given continued improvement with daily PO Lasix, though odd that BJORN worsened then improved on static doses of Lasix since 04/01. Code: FULL CODE Dispo: Telemetry PPX: Anticoagulate with Eliquis Diet: Heart Healthy, low sodium (2) CHF (congestive heart failure): (3) COPD (chronic obstructive pulmonary disease): (4) Renal insufficiency: (5) Hyperglycemia: (6) Morbid obesity with BMI of 40.0-44.9, adult: (7) Tobacco use disorder: Admission and Anticipated Discharge Date Admission Date: April 01, 2021 Supervising Physician Co-Signing Physician Notes Patient seen and examined with PGY-3 Dr. Herrmann. Agree with history, exam findings, assessment and plan of care. In brief, Mikayla is a 60 year old with history of HTN admitted with new acute hypoxemic, hypercapnia respiratory failure secondary to HFrEF and COPD. She was able to walk in the hallway with PT without feeling short of breath. Did have an episode of afibshe was asymptomatic during this. Vital signs and nursing notes reviewed. Breathing comfortably on 2L NC. Breath sounds-- fair air movement. Heart with regular rate and rhythm. Labs and imaging reviewed. 1. Acute hypoxemic, hypercapnic respiratory failure. Likely a mix of COPD and CHF, with possible NELSON. Weaning O2 as able. May need two-step if she is not to be weaned off O2 completely. Also, will need sleep study done as an outpatient. 2. HFrEF. EF 45-50%. left ventricle hypokinesis. Increased metoprolol 50mg, lasix 20mg. 3. COPD. 32 pack year history. Continue pred taper. Already completed azithro. Continue Anoro Ellipta, pulmicort. Will need PFTs as an outpatient. 4. Afib. Rate controlled. Increased metoprolol to 50mg. Started Eliquis. 5. Elevated troponin. Due to demand. Peaked and downtrended. 6. HTN. BPs are still mildly elevated. Continue metoprolol 25mg, amlodipine 7.5mg, Lasix 20mg, and Lisinopril. 7. AK on CKD. Unclear what her baseline renal function is, but I suspect we are probably close to it. Did have a small bump in the Cr after starting Lisinopril, but she will need to be on this regardless for CKD for renoprotection. Dispo: pending clinical improvement. Hopeful for discharge on Thursday. Appreciate care management assistance with obtain home care/DME since patient lives in [place] and we will need to figure out how to get her home with O2 if needed. Subjective Overnight developed afib on telemetry, which is new for her. Reports being asymptomatic from this standpoint. Denies CP, palpitations. She understands what this means as her mother has a history of it and is on board with starting an anticoagulant. She otherwise reports stable respiratory status and mainly mentions she is somewhat bored. As such, we gave permission for her to ambulate in hallway with staff member and O2 at all times. Review of Systems Review of Systems: All systems reviewed & are unremarkable except as noted in Subjective Physical Exam Physical Exam: GENERAL: A&Ox3. NAD. HEENT: EOMI. Moist mucous membranes. CHEST/LUNGS: CTAB A/P. No crackles, wheezes, rales, rhonchi. HEART: RRR. No m/g/r. No carotid bruits. SKIN: Warm and dry. No rashes or lesions. PSYCHIATRIC: Euthymic affect, no SI, no pressured speech, no hallucinations NEUROLOGIC: CN II-XII grossly intact. Results & Data Results & Data ([facility]) Vital Signs (Past 12 Hours) Vital Signs Temp Pulse Pulse Resp BP BP Pulse Ox 04/06/21 08:00 36.4 C L 87 20 145/88 H 92 04/06/21 07:23 87 16 92 04/06/21 03:37 37.0 C 57 L 19 138/72 92 04/06/21 01:10 87 L 04/05/21 23:47 36.8 C 53 L 18 132/76 91 04/05/21 23:07 66 18 96 04/05/21 22:19 55 L Resident Activity Tracking Resident Involvement: Resident Care Provided Care Provided: Adult Hospital Medicine (1) CHF (congestive heart failure) Heart failure chronicity: acute on chronic Heart failure type: unspecified Qualified Code(s): I50.9 - Heart failure, unspecified (2) COPD (chronic obstructive pulmonary disease) COPD type: COPD with acute exacerbation Qualified Code(s): J44.1 - Chronic obstructive pulmonary disease with (acute) exacerbation
[2021-04-06] MEDS: INSULIN ASPART 100 UNITS/ML 3 ML PEN SC SCH ×4 (09:20→20:56)
[2021-04-06] MEDS ORDERED: METOPROLOL SUCC 25MG EXT REL TAB PO ONE (09:30)
--- NOTE | 2021-04-06 12:33 | Electrocardiogram Report ---
Test Reason : Blood Pressure : / mmHG Vent. Rate : 077 BPM Atrial Rate : 147 BPM P-R Int : 000 ms QRS Dur : 104 ms QT Int : 384 ms P-R-T Axes : 000 -13 186 degrees QTc Int : 434 ms Atrial fibrillation with a competing junctional pacemaker Moderate voltage criteria for LVH, may be normal variant Abnormal ECG When compared with ECG of 31-MAR-2021 21:44, Atrial fibrillation has replaced Sinus rhythm The lateral ST/T changes are new Confirmed by Bernard Lees ([id number]) on 04/06/2021 12:32:50 PM Referred By: REFERRED SELF Confirmed By:Bernard Lees
[2021-04-07] MEDS: APIXABAN 2.5 MG TAB PO SCH ×2 (05:44→18:10)
[2021-04-07] MEDS: ALBUT/IPRATROP 3MG/0.5MG NEB 3 ML VIAL NEB SCH ×2 (07:13→17:35)
[2021-04-07] MEDS: BUDESONIDE 0.5 MG/2 ML VIAL (PULMICORT) NEB SCH ×2 (07:13→17:38)
[2021-04-07 07:25] LABS: Basophils # (auto) 0.01 K/uL (0-0.2); Basophils % (auto) 0.1 %; Eosinophils # (auto) 0.22 K/uL (0-0.5); Eosinophils % (auto) 2.5 %; Hematocrit (blood only) 37.7 % (37-47); Hemoglobin 11.8 g/dL (12.0-16.0); Immature Granulocytes # (auto) 0.03 K/uL (0.00-0.02); Immature Granulocytes % (auto) 0.3 %; Lymphocytes # (auto) 1.82 K/uL (1.2-3.4); Lymphocytes % (auto) 20.8 %; Mean Corpuscular Hgb Conc 31.3 g/dL (32-36); Mean Corpuscular Volume 92.6 fL (80-100); Mean Platelet Volume 10.9 fL (7.4-10.4); Monocytes # (auto) 0.83 K/uL (0.11-0.59); Monocytes % (auto) 9.5 %; Neutrophils # (auto) 5.83 K/uL (1.4-6.5); Neutrophils % (auto) 66.8 %; Platelet Count 193 K/uL (130-400); RDW Coefficient of Variation 13.9 % (11.5-14.5); RDW Standard Deviation 46.7 fL (36.4-46.3); Red Blood Count 4.07 M/uL (4.2-5.4); White Blood Count 8.74 K/uL (4.8-10.8)
[2021-04-07 07:49] LABS: BUN Creatinine Ratio 19.4 (10-20); Calcium 8.6 mg/dl (8.5-10.1); Creatinine Clr Calc Pharmacy 45.5 ml/min; Est GFR (African American) 38.7 ml/min; Est GFR (Non-African American) 33.4 ml/min; Potassium 3.6 mmol/L (3.5-5.1)
--- NOTE | 2021-04-07 08:34 | Hospitalist Progress Note ---
Date of Service April 07, 2021 Assessment & Plan (1) Acute respiratory failure with hypoxia and hypercapnia: Plan: 60 yo F PMHx HTN and tobacco use who presented to [facility] with acute hypoxic, hypercapnic respiratory failure, thought to be secondary to COPD exacerbation and newly-discovered CHF requiring now 2LNC. Acute Hypoxic, Hypercapnic Respiratory Failure -- improving * Reporting several weeks of worsening CHAMBERLAIN, generalized SOB, orthopnea, peripheral edema. * In ED, found to be hypoxic to 86% with pCO2 of 66 on ABG. * Procalcitonin, COVID-19 ordered: procal (-), COVID (-), CRP mildly elevated to 3.95 -- low suspicion for active pneumonia. * CTA Chest revealed cardiomegaly, changes c/w pHTN, diffuse septal thickening c/w congestive failure or pneumonitis, small pleural effusions, small pulmonary nodules, mild aneurysm dilatation of ascending thoracic aorta. * Suspect ventilation/oxygenation issues are due to mixed COPD, CHF worsening / exacerbation. * Possible component of NELSON too --> nocturnal pulse oximetry performed: - >25 hypoxic events totaling >30 min on oximetry: recommend formal sleep study as outpatient. * s/p BiPAP for short duration --> Now requiring 2LNC. Continue to wean as able, with Care Management assistance should she continue to need supplemental oxygen. * Continue incentive spirometry. * Care of HFrEF and COPD as described below. Heart Failure with Reduced Ejection Fraction -- LVEF 45-50% * Clinically reporting worsening CHAMBERLAIN, SOB, +orthopnea, and findings of volume overload on physical exam. * TTE 04/01: LVEF 45-50% with global LV hypokinesis, pulmonary HTN, mild- moderate aortic and tricuspid regurgitation. * Has had reasonable response to diuresis, and XR Chest today with interval improvement in fluid overload. * Continue Lasix 20mg qAM while monitoring for worsening BJORN. * Continue lisinopril 5mg daily * Metoprolol changed to 50mg daily as below * Monitor I&Os, daily standing weights. Continue low sodium diet. * Maintain K > 4, Mg > 2, Phos > 3. * Recommend exercise stress test as outpatient. Atrial fibrillation -- new diagnosis * Patient developed asymptomatic afib on telemetry today * CHADS-VASC score of 3 making her candidate for anticoagulation * Start Eliquis 2.5 mg BID due to current creatinine above 1.5 * Monitor kidney function in case this improves and dose can be increased to 5mg BID * Was on metoprolol succinate 25mg daily -- gave extra 25mg today and changed daily dosing to 50mg starting tomorrow * Currently rate-controlled COPD: * Patient with known smoking history (0.75ppd x 43yr = 32 pack years). * Transitioned to prednisone taper (40mg) x 10 days (start 04/01) -- 40 > 40 > 20 > 20 > 10 > 10 > 5 > 5. * s/p azithromycin x 4 days. * Continue Anoro Ellipta started on admission. Duonebs as needed. * Guaifenesin daily. * Pulmicort Respules 0.5 mg b.i.d. * Recommend PFTs as outpatient. * Seems to have new oxygen requirement that she will need at home * Ordered 2-step to be performed by Respiratory Therapy to ascertain needs when ambulating * Case Management to work on coordinating oxygen for discharge, which is likely tomorrow Elevated Troponin -- downtrending as of 1730 on 04/01 * Admission troponin 0.027 --> peaked at 0.5, downtrended at 1730 on 04/01. * No acute repolarization or conduction abnormalities appreciated on EKG. * Suspect secondary to demand ischemia in setting of HTN, COPD, CHF exacerbation. * As above: recommend exercise stress test as outpatient given labwork and findings on Echo. HTN: * On admission, BPs ranging between 190s-220s/110s-140s. * Currently on metoprolol succinate 25mg daily. * Continue amlodipine 7.5mg daily. * Lasix 20 daily, as above. * Continue lisinopril 5mg daily BJORN * Unknown Cr baseline; on admission Cr 1.39 -> 2.29 -> 1.6 -> 1.71 * Will monitor. Avoid nephrotoxins. * Would be suspicious of fluid overload as potential contributor to BJORN given continued improvement with daily PO Lasix, though odd that BJORN worsened then improved on static doses of Lasix since 04/01. Code: FULL CODE Dispo: Telemetry -- likely DC tomorrow, O2 needs pending 2-Step study PPX: Anticoagulate with Eliquis Diet: Heart Healthy, low sodium (2) CHF (congestive heart failure): (3) COPD (chronic obstructive pulmonary disease): (4) Renal insufficiency: (5) Hyperglycemia: (6) Morbid obesity with BMI of 40.0-44.9, adult: (7) Tobacco use disorder: Admission and Anticipated Discharge Date Admission Date: April 01, 2021 Supervising Physician Co-Signing Physician Notes Patient seen and examined independently of PGY-2 Dr. Funes. Agree with history, exam findings, assessment and plan of care. In brief, Mikayla is a 60 year old with history of HTN admitted with new acute hypoxemic, hypercapnia respiratory failure secondary to HFrEF and COPD. She was able to complete a 2 step today and does not require oxygen. This is a relief to her. She did not feel winded when she was walking with respiratory. No chest pain. Does report that she has had non-refreshing sleep for over a year now. She often sleeps with multiple pillows or in a more upright position. Vital signs and nursing notes reviewed. Breathing comfortably on room air. Breath sounds-- fair air movement. Heart with regular rate and rhythm. Labs and imaging reviewed. 1. Acute hypoxemic, hypercapnic respiratory failure. Resolved. Likely a mix of COPD and CHF, with possible NELSON. Off O2 (but will probably need supplemental O2 overnight as she will likely desat due to NELSON). Suggest a sleep study done as an outpatient given new onset sleep apnea. 2. HFrEF. EF 45-50%. left ventricle hypokinesis. Increased metoprolol 50mg, lasix 20mg. 3. COPD. 32 pack year history. Continue pred taper. Already completed azithro. Continue Anoro Ellipta, pulmicort. Will need PFTs as an outpatient. 4. Afib. Now in normal sinus. Increased metoprolol to 50mg. Started Eliquis. 5. Elevated troponin. Due to demand. Peaked and downtrended. 6. HTN. BPs are still mildly elevated. Continue metoprolol 50mg, amlodipine 7.5mg, Lasix 20mg, and Lisinopril. 7. AK on CKD. Unclear what her baseline renal function is, but I suspect we are probably close to it. Did have a small bump in the Cr after starting Lisinopril, but she will need to be on this regardless for CKD for renoprotection. Dispo: Discharge tomorrowmom will be driving from [employer] to pick her up tomorrow. Subjective Patient doing well this morning. Seen sitting at bedside chair in no acute distress. She reports no difficulty breathing or cough. No pain. Has been able to walk around and stay a bit more entertained while here. Review of Systems Review of Systems: All systems reviewed & are unremarkable except as noted in Subjective Physical Exam Physical Exam: GENERAL: A&Ox3. NAD. HEENT: EOMI. Moist mucous membranes. CHEST/LUNGS: CTAB A/P. No crackles, wheezes, rales, rhonchi. HEART: RRR. No m/g/r. No carotid bruits. SKIN: Warm and dry. No rashes or lesions. PSYCHIATRIC: Euthymic affect, no SI, no pressured speech, no hallucinations NEUROLOGIC: CN II-XII grossly intact. Results & Data Results & Data ([facility]) Vital Signs (Past 12 Hours) Vital Signs Temp Pulse Pulse Resp BP Pulse Ox 04/07/21 07:13 60 16 04/07/21 03:20 37.0 C 60 17 146/83 H 91 04/06/21 23:13 36.9 C 54 L 18 146/86 H 94 04/06/21 22:47 55 L 18 100 04/06/21 22:19 63 Resident Activity Tracking Resident Involvement: Resident Care Provided Care Provided: Adult Hospital Medicine (1) CHF (congestive heart failure) Heart failure chronicity: acute on chronic Heart failure type: unspecified Qualified Code(s): I50.9 - Heart failure, unspecified (2) COPD (chronic obstructive pulmonary disease) COPD type: COPD with acute exacerbation Qualified Code(s): J44.1 - Chronic obstructive pulmonary disease with (acute) exacerbation
[2021-04-07] MEDS: INSULIN ASPART 100 UNITS/ML 3 ML PEN SC SCH ×4 (08:56→20:37)
[2021-04-07] MEDS: UMECLIDINIUM/VILANTEROL 62.5/25MCG 7 PUFFS/INHALER INH SCH (08:58)
[2021-04-07] MEDS: lisinopril 5 MG TAB PO SCH (08:58)
[2021-04-07] MEDS: METOPROLOL SUCC 50MG EXT REL TAB PO SCH (08:58)
[2021-04-07] MEDS: guaiFENesin 600 MG TABCR PO SCH ×2 (08:58→20:36)
[2021-04-07] MEDS: FUROSEMIDE 20 MG TAB PO SCH (08:59)
[2021-04-07] MEDS: amLODIPine BESYLATE 5 MG TAB PO SCH (08:59)
[2021-04-07] MEDS: predniSONE 10 MG TABLET PO SCH (09:00)
[2021-04-07] MEDS ORDERED: ALBUT/IPRATROP 3MG/0.5MG NEB 3 ML VIAL ONE (20:55)
[2021-04-08] MEDS: APIXABAN 2.5 MG TAB PO SCH (06:08)
--- NOTE | 2021-04-08 06:23 | Hospitalist Progress Note ---
Date of Service April 08, 2021 Assessment & Plan (1) Acute respiratory failure with hypoxia and hypercapnia: Plan: 60 yo F PMHx HTN and tobacco use who presented to [facility] with acute hypoxic, hypercapnic respiratory failure, thought to be secondary to COPD exacerbation and newly-discovered CHF requiring now 2LNC. Acute Hypoxic, Hypercapnic Respiratory Failure -- improving * Reporting several weeks of worsening CHAMBERLAIN, generalized SOB, orthopnea, peripheral edema. * In ED, found to be hypoxic to 86% with pCO2 of 66 on ABG. * Procalcitonin, COVID-19 ordered: procal (-), COVID (-), CRP mildly elevated to 3.95 -- low suspicion for active pneumonia. * CTA Chest revealed cardiomegaly, changes c/w pHTN, diffuse septal thickening c/w congestive failure or pneumonitis, small pleural effusions, small pulmonary nodules, mild aneurysm dilatation of ascending thoracic aorta. * Suspect ventilation/oxygenation issues are due to mixed COPD, CHF worsening / exacerbation. * Possible component of NELSON too --> nocturnal pulse oximetry performed: - >25 hypoxic events totaling >30 min on oximetry: recommend formal sleep study as outpatient. * s/p BiPAP for short duration --> Now requiring 2LNC. Continue to wean as able, with Care Management assistance should she continue to need supplemental oxygen. * Continue incentive spirometry. * Care of HFrEF and COPD as described below. Heart Failure with Reduced Ejection Fraction -- LVEF 45-50% * Clinically reporting worsening CHAMBERLAIN, SOB, +orthopnea, and findings of volume overload on physical exam. * TTE 04/01: LVEF 45-50% with global LV hypokinesis, pulmonary HTN, mild- moderate aortic and tricuspid regurgitation. * Has had reasonable response to diuresis, and XR Chest today with interval improvement in fluid overload. * Continue Lasix 20mg qAM while monitoring for worsening BJORN. * Continue lisinopril 5mg daily * Metoprolol changed to 50mg daily as below * Monitor I&Os, daily standing weights. Continue low sodium diet. * Maintain K > 4, Mg > 2, Phos > 3. * Recommend exercise stress test as outpatient. Atrial fibrillation -- new diagnosis * Patient developed asymptomatic afib on telemetry today * CHADS-VASC score of 3 making her candidate for anticoagulation * Start Eliquis 2.5 mg BID due to current creatinine above 1.5 * Monitor kidney function in case this improves and dose can be increased to 5mg BID * Was on metoprolol succinate 25mg daily -- gave extra 25mg today and changed daily dosing to 50mg starting tomorrow * Currently rate-controlled COPD: * Patient with known smoking history (0.75ppd x 43yr = 32 pack years). * Transitioned to prednisone taper (40mg) x 10 days (start 04/01) -- 40 > 40 > 20 > 20 > 10 > 10 > 5 > 5. * s/p azithromycin x 4 days. * Continue Anoro Ellipta started on admission. Duonebs as needed. * Guaifenesin daily. * Pulmicort Respules 0.5 mg b.i.d. * Recommend PFTs as outpatient. * Seems to have new oxygen requirement that she will need at home * Ordered 2-step to be performed by Respiratory Therapy to ascertain needs when ambulating * Case Management to work on coordinating oxygen for discharge, which is likely tomorrow Elevated Troponin -- downtrending as of 1730 on 04/01 * Admission troponin 0.027 --> peaked at 0.5, downtrended at 1730 on 04/01. * No acute repolarization or conduction abnormalities appreciated on EKG. * Suspect secondary to demand ischemia in setting of HTN, COPD, CHF exacerbation. * As above: recommend exercise stress test as outpatient given labwork and findings on Echo. HTN: * On admission, BPs ranging between 190s-220s/110s-140s. * Currently on metoprolol succinate 25mg daily. * Continue amlodipine 7.5mg daily. * Lasix 20 daily, as above. * Continue lisinopril 5mg daily BJORN * Unknown Cr baseline; on admission Cr 1.39 -> 2.29 -> 1.6 -> 1.71 * Will monitor. Avoid nephrotoxins. * Would be suspicious of fluid overload as potential contributor to BJORN given continued improvement with daily PO Lasix, though odd that BJORN worsened then improved on static doses of Lasix since 04/01. Code: FULL CODE Dispo: Telemetry -- likely DC tomorrow, O2 needs pending 2-Step study PPX: Anticoagulate with Eliquis Diet: Heart Healthy, low sodium (2) CHF (congestive heart failure): (3) COPD (chronic obstructive pulmonary disease): (4) Renal insufficiency: (5) Hyperglycemia: (6) Morbid obesity with BMI of 40.0-44.9, adult: (7) Tobacco use disorder: Admission and Anticipated Discharge Date Admission Date: April 01, 2021 Results & Data Results & Data ([facility]) Vital Signs (Past 12 Hours) Vital Signs Temp Pulse Pulse Resp BP Pulse Ox 04/07/21 22:02 36.9 C 59 L 16 158/91 H 91 04/07/21 18:21 36.9 C 66 20 167/89 H 93 (1) CHF (congestive heart failure) Heart failure chronicity: acute on chronic Heart failure type: unspecified Qualified Code(s): I50.9 - Heart failure, unspecified (2) COPD (chronic obstructive pulmonary disease) COPD type: COPD with acute exacerbation Qualified Code(s): J44.1 - Chronic obstructive pulmonary disease with (acute) exacerbation
[2021-04-08] MEDS ORDERED: ALBUT/IPRATROP 3MG/0.5MG NEB 3 ML VIAL NEB SCH (07:00)
[2021-04-08] MEDS: BUDESONIDE 0.5 MG/2 ML VIAL (PULMICORT) NEB SCH (08:03)
[2021-04-08] MEDS: METOPROLOL SUCC 50MG EXT REL TAB PO SCH (09:15)
[2021-04-08] MEDS: lisinopril 5 MG TAB PO SCH (09:15)
[2021-04-08] MEDS: guaiFENesin 600 MG TABCR PO SCH (09:15)
[2021-04-08] MEDS: amLODIPine BESYLATE 5 MG TAB PO SCH (09:15)
[2021-04-08] MEDS: predniSONE 10 MG TABLET PO SCH (09:15)
[2021-04-08] MEDS: FUROSEMIDE 20 MG TAB PO SCH (09:16)
[2021-04-08] MEDS: UMECLIDINIUM/VILANTEROL 62.5/25MCG 7 PUFFS/INHALER INH SCH (09:16)
[2021-04-08] MEDS: INSULIN ASPART 100 UNITS/ML 3 ML PEN SC SCH (09:18)
--- NOTE | 2021-04-08 10:54 | Discharge Summary ---
Date of Service April 08, 2021 Admission HPI Per Admitting Provider The patient is a 60-year-old female with a past medical history including COPD, CHF, morbid obesity and tobacco abuse, who presents emergency department symptoms noted above. She continues to smoke on average one fourth of a pack of cigarettes daily. She denies any recent travels or sick exposures. Work-up in the emergency department included a room air pulse ox of 86 to 88%, requiring administration of BiPAP with 40% FiO2 to have an O2 sat of 97%. Chest x-ray and CT angiography chest PE protocol were consistent with mild pulmonary edema. She did notice improvement with DuoNeb's in the ED and administration of Lasix 40 mg IV Admission Exam Per Admitting Provider The patient is awake, alert and oriented 3, well developed and well nourished, normocephalic and atraumatic, lying in bed and in no acute distress. HEENT--PERRL, EOMI, mucous membranes and oropharynx dry. Neck--supple. No JVD. No bruits. Thyroid normal, trachea midline, no adenopathy. Heart--normal S1 and S2. No murmurs, rubs or gallops. Lungs--scattered wheezes and coarse breath sounds bilaterally. No respiratory distress, no accessory muscle use. Abdomen--normal bowel sounds and soft. Nontender. Nondistended. Morbidly obese Extremities--1+ bilateral pretibial pitting edema. Dermatologic--normal skin turgor, normal color, no abnormal lymph nodes, no ra sh. Neurologic--cranial nerves II through XII grossly intact. Rheumatologic--normal range of motion. Psychiatric--normal affect. Principal Diagnosis acute hypoxic respiratory failure HFrEF Possible COPD Possible NELSON Discharge Exam General: well appearing, NAD, on RA HEENT: NCAT. Eyes - Sclera are white, anicteric, and without injection. No JVD. Cardiac: Normal rate that accelerates with inhalation; S1 and S2 present with no murmurs, rubs, or gallops. Pulmonary: Good respiratory effort with symmetric expansion of the chest. No use of accessory muscles. Lungs were clear to auscultation bilaterally with no crackles or wheezes. Abdominal: Abdomen was soft, nondistended, and non-tender to palpation. Extremities: Upper and lower extremities are warm and well perfused. Psych: Well-developed, well-nourished, appropriately dressed for occasion. Behavior is cooperative and appropriate. Affect is WNL. Insight is appropriate. Discharge Data Allergies Allergy/AdvReac Type Severity Reaction Status Date / Time No Known Allergies Allergy Verified 03/31/21 22:24 Consultations 04/01/21 00:07 ED Decision to Admit Stat Ordered Studies CT ANGIOGRAM OF THE CHEST (03/31) CLINICAL HISTORY: Dyspnea. COMPARISON STUDY: Chest x-ray dated 03/31/2021. TECHNIQUE: Following the IV administration of 120 cc of Optiray 320, CT angiogram of the chest was performed from the upper abdomen to the thoracic inlet utilizing the pulmonary embolus protocol. Images are reviewed in the axial, sagittal, and coronal planes. 3-D MIPS images are created and assessed. IV contrast was administered without complication. A dose lowering technique was utilized adhering to the principles of ALARA. CT DOSE: 571.96 mGycm FINDINGS: Thyroid: Imaged portions of the thyroid gland are normal in size and attenuation. Thoracic aorta: There is atherosclerotic calcification of the thoracic aorta. There is mild aneurysm dilatation of the ascending thoracic aorta which measures up to 4.3 cm. The remainder of the thoracic aorta is normal in caliber, and the arch demonstrates standard 3-vessel anatomy. No dissection is seen. Pulmonary vasculature: The pulmonary trunk is markedly dilated, measuring 4.6 cm in diameter. This suggests pulmonary artery hypertension. There are no filling defects identified in main, lobar, or segmental pulmonary branches to suggest pulmonary embolus. Heart: The heart is mildly enlarged and without pericardial effusion. The coronary arteries are densely calcified. Lungs and pleural spaces: There is diffuse intralobular septal thickening and mild groundglass change. There are small pleural effusions with bibasilar atelectasis. Minimal secretions are noted in the trachea. 3 mm left lower lobe pulmonary nodules are seen on images #75 and #83. A 4 mm pleural-based nodule in the left lower lobe as seen on image #115. A 3 mm right lower lobe pulmonary nodule is seen image #144. Mediastinum: There is no mediastinal lymphadenopathy. Thea: Clear. Axillae: There is no axillary lymphadenopathy. Upper abdomen: Partially visualized upper abdominal viscera is within normal limits. Skeletal structures: The skeletal structures are osteopenic. No lytic or blastic bony lesions are seen. IMPRESSION: 1. There is no evidence of pulmonary embolus in the main, lobar, or segmental pulmonary arteries. 2. Cardiomegaly with evidence of pulmonary artery hypertension. 3. Diffuse intralobular septal thickening mild groundglass change is typical for congestive failure and mild pulmonary edema. Correlate clinically for evidence of a superimposed infectious/inflammatory pneumonitis. 4. Small pleural effusions. 5. Suspect small pulmonary nodules measure up to 4 mm. These are not well assessed due to surrounding parenchymal change. A 3-4 month follow-up chest CT is recommended for reassessment. 6. There is mild aneurysmal dilatation of the ascending thoracic aorta which measures up to 4.3 cm. 7. Additional findings as above. Hospital Course (1) Acute respiratory failure with hypoxia and hypercapnia: 60 yo F PMHx HTN and tobacco use who presented to [facility] with acute hypoxic, hypercapnic respiratory failure, thought to be secondary to COPD exacerbation and newly-discovered CHF requiring now 2LNC. Acute Hypoxic, Hypercapnic Respiratory Failure -- returned to RA by discharge * Reporting several weeks of worsening CHAMBERLAIN, generalized SOB, orthopnea, jd pheral edema. * COVID-19 (-), procalcitonin (-) throughout admission - low c/f PNA while here * CTA Chest revealed cardiomegaly, changes c/w pHTN, diffuse septal thickening c/w congestive failure or pneumonitis, small pleural effusions, small pulmonary nodules, mild aneurysm dilatation of ascending thoracic aorta. * Suspect ventilation/oxygenation issues are due to [id number] HFrEF and possible COPD vs. OHS * Possible component of NELSON too --> nocturnal pulse oximetry performed while here. >25 hypoxic events totaling >30 min on oximetry. Recommend formal sleep st udy as outpatient. * Care of HFrEF and COPD as described below. Heart Failure with Reduced Ejection Fraction -- LVEF 45-50% * Clinically reporting worsening CHAMBERLAIN, SOB, +orthopnea, and findings of volume overload on physical exam. * TTE 04/01: LVEF 45-50% with global LV hypokinesis, pulmonary HTN, mild- moderate aortic and tricuspid regurgitation. * Has had reasonable response to diuresis, and CXR with interval improvement in fluid overload * Continue Lasix 20mg qAM on d/c * Continue lisinopril 5mg daily on d/c --> Consider transition to Entresto in future * Metoprolol 50mg daily as below * Recommend referral to cardiology as outpatient for catheterization vs. stress test New-Onset Atrial Fibrillation -- converted prior to discharge * Patient developed asymptomatic AF on 04/07 - converted prior to d/c * Echo as above, TSH 3.78, Lytes stable throughout admission * CHADS-VASC score of 3 making her candidate for anticoagulation * Start Eliquis 2.5 mg BID due to current creatinine above 1.5 -- Please recheck BMP within 1 week of d/c to determine eligibility for 5mg b.i.d. * Currently rate-controlled * Metoprolol, as above Possible COPD * Patient with known smoking history (0.75ppd x 43yr = 32 pack years). * Completed 7-day steroid taper prior to discharge * s/p azithromycin x 4 days. * Continue Anoro Ellipta started on admission * Albuterol p.r.n. * Recommend PFTs as outpatient for formal work-up of COPD * 2-step performed prior to discharge -- not needing O2 at this time Elevated Troponin -- downtrending as of 1730 on 04/01 * Admission troponin 0.027 --> peaked at 0.5, downtrended at 1730 on 04/01. * No acute repolarization or conduction abnormalities appreciated on EKG. * Suspect secondary to demand ischemia in setting of HTN, COPD, CHF exacerbation. * As above: recommend CAD work-up (cath vs. stress) after d/c HTN: * On admission, BPs ranging between 190s-220s/110s-140s. * Continue metoprolol 50mg daily * Continue amlodipine 7.5mg daily * Lasix 20 daily * Continue lisinopril 5mg daily BJORN -- Downtrending -- BUN 32 / Cr 1.67 on 04/07 (day before d/c) * Unknown Cr baseline; on admission Cr 1.39 -> 2.29 -> 1.6 -> 1.71 * Suspect prerenal in etiology * Check BMP within 1 week of discharge Code: FULL CODE (2) CHF (congestive heart failure): (3) COPD (chronic obstructive pulmonary disease): (4) Renal insufficiency: (5) Hyperglycemia: (6) Morbid obesity with BMI of 40.0-44.9, adult: (7) Tobacco use disorder: Total Time Total Time Spent Total Time Spent (In Minutes): <30 Discharge Plan Discharge Items Patient Disposition: Home - Self-Care Reason For Visit: COPD EXACERBATION WITH HYPOXIA Discharge Diagnosis: possible COPD heart failure with reduced ejection fraction atrial fibrillation Activity: Per Instructions section Non-emergency contact: Primary Care Provider and Chief Lock Operator Call non-emergency contact if: you have any medication questions, your symptoms worsen, your pain is concerning for you and your temperature is above 101 Follow-up/Referrals: PCP,NO [Primary Care Provider] - Diet: Heart Healthy Addtl Attending Provider Instructions: You were seen at [facility] for evaluation of shortness of breath. During your time here, you underwent several tests to determine the cause of your symptoms. You underwent heart tests that did demonstrate decreased function; when this occurs, it can result in fluid building up in areas that are otherwise inappropriate -- such as the lungs. We worked diligently with various medications to drain this fluid, and to control your blood pressure and preserve heart function. We strongly recommend you follow-up with your marble and granite polisher within 1-2 weeks of discharge to discuss a cardiac catheterization (visualizing the heart's arteries and opening them if they are more clogged than optimal) -- clogged heart arteries can contribute to heart function. Further, we also recommend you get a sleep study - as obstructive sleep apnea can contribute to your symptoms. Likely also contributing is your smoking history. To confirm chronic obstructive pulmonary disease (COPD) - which you may have - you have to get special lung tests. Please talk with your PCP about getting pulmonary function tests (PFTs). As discussed, we highly encourage decreasing or completely quitting smoking. Upon discharge, please utilize the following medications: - Furosemide 20mg, daily (in the morning) - Lisinopril 5mg, daily - Anoro Ellipta (inhaler) - 1 puff, daily - Amlodipine 7.5mg, daily - Metoprolol succinate 50mg, daily - Apixaban 2.5mg, twice daily -- your dose may increase in the future -- please talk with your doctor about getting your kidney function rechecked - Albuterol inhaler, every 4-6 hours as needed, for shortness of breath - Prednisone 10mg, once, on the day AFTER discharge Please follow-up with your PCP within 1 week to review this visit and your medications. Please also discuss rechecking your kidney function at this visit (a blood test). In the interim, if you experience any worsening shortness of breath, coughing, chest pain, palpitations, lightheadedness, dizziness, or other worrisome symptoms, please seek medication attention; if your symptoms are severe, please report to the ER for immediate evaluation. ---- Call 911 and go to the Emergency Room if: * You have tightness or pain in your chest that does not go away with rest or Nitroglycerin * You are very short of breath even with rest Call your doctor if any of the following symptoms or problems start or get worse: * Shortness of breath or difficulty breathing * Wake up at night short of breath * Chest pain * Cough * Swelling of your hands, fee, or legs * More fatigued or tired with your normal activity * Palpitations - sudden fast heart beats WEIGHT * Weigh yourself every morning after using the bathroom. * Use the same scale. * Wear the same amount of clothing. * Write your weight down on your chart. * Call your doctor if you gain more than 2-3 pounds in 1-2 days. MEDICATIONS * Use this discharge instruction sheet for instructions. * Take your medications at the time your doctor ordered. * Do not skip a dose of your medicines. * If you miss a dose of medicine, take as soon as possible, but DO NOT DOUBLE A DOSE. * Read your medicine information when you get home. * Know all of the side effects of your medicine. * Call your doctor's office if you have any side effects. * Be sure all of your doctors know what medicine and herbs you take (including cold, flu, and herbal medicine). * Pain Medicine: If you do not get relief from your pain, please call your doctor for help. Take the following with you to your follow-up doctor appointments: * Weight Chart * Medication List * List of questions Do not drink excessive alcohol, beer or wine. Pending Studies at Discharge: No Stand-Alone Forms: My [facility] [employer] [place], Opioid Pain Management, Smoking Cessation Medications and DC Order Prescriptions: New Eliquis 2.5 mg Tablet 2.5 mg PO BID@0600,1800 30 Days Qty: 60 RF: 0 Anoro Ellipta 62.5-25 mcg/actuation Blister With Device 1 ea inhalation DAILY 30 Days Qty: 1 RF: 0 amlodipine [Norvasc] 5 mg Tablet 7.5 mg PO QAM 30 Days Qty: 45 RF: 0 lisinopril [Zestril] 5 mg Tablet 5 mg PO QAM 30 Days Qty: 30 RF: 0 metoprolol succinate 50 mg Tablet Extended Release 24 Hr 50 mg PO QAM 30 Days Qty: 30 RF: 0 furosemide 20 mg Tablet 20 mg PO QAM 30 Days Qty: 30 RF: 0 prednisone 10 mg Tablet 10 mg PO DAILY 1 Days Qty: 1 RF: 0 albuterol sulfate 90 mcg/actuation HFA aerosol inhaler 1 inh inhalation Q6H PRN (Reason: shortness of breath or wheezing) Qty: 6.7 RF: 2 Discharge Orders: Discharge Order (Routine); Ordered 04/08/21 Ordered By: Fransisco Burks/Other Patient Handouts: COPD Using Inhalers, Heart Failure Meds, Low- Salt Choices, Heart Failure Signs of Flare-Up, Heart Failure: Tracking Your Weight, Heart Failure Making Changes to ..., Discharge Instructions: COPD, Eating Heart-Healthy Foods, Understanding Atrial Fibrillation, ED Heart Failure, Congestive (CHF) Admission Data Admit Date/Time: 04/01/21 00:45 Attending Provider: Fransisco Singh Admit Provider: Earl Daniel Primary Care Provider: PCP,NO Other Providers: Earl Daniel ; Freida Bernardo Other Interventions: Discharge Summary Assessment (RN) Last Done: 04/08/21 11:28 Supervising Physician Co-Signing Physician Notes I personally examined the patient and verified all lynch points of history and exam, discussed case, and agree with decision making with Dr Epps. Feeling better, dressed and getting her socks and shoes on whenever I enter the roomvery ready to go home. Vitals noted, in general she is awake and alert pleasant no distress. No conversational dyspnea, no accessory muscle use good effort. Skin shows no rashes no pallor or icterus. Neuro without focal deficits. Acute hypoxic and hypercapnic respiratory failurenow improved. Likely combination of COPD CHF likely underlying NELSON. Stable for home. Presumed COPDoutpatient PFTs. Maintenance inhalers including anticholinergic for now. Stable for home. Outpatient sleep study Acute on presumably chronic HFrEFmed management for now, outpatient cardiology follow-up, anticipate ischemic work-up as an outpatient in the near future. Tried to discuss low-sodium dietpatient adamant that she is already very careful. Expressed to patient what sort of foods would commonly lead a patient with HFrEF to end up in the hospital with pulmonary edema. A. fibrate controlled, anticoagulated. Outpatient sleep study Stable for home, close outpatient PCP, cardiology, pulmonary follow-up.
--- NOTE | 2021-04-08 15:52 | Electrocardiogram Report ---
Test Reason : Blood Pressure : / mmHG Vent. Rate : 054 BPM Atrial Rate : 054 BPM P-R Int : 188 ms QRS Dur : 102 ms QT Int : 432 ms P-R-T Axes : 009 -06 198 degrees QTc Int : 409 ms Sinus bradycardia with marked sinus arrhythmia Left ventricular hypertrophy with repolarization abnormality Cannot rule out Septal infarct (cited on or before 08-APR-2021) T wave abnormality, consider inferolateral ischemia Abnormal ECG When compared with ECG of 06-APR-2021 06:42, Sinus rhythm has replaced Atrial fibrillation Confirmed by Kapil Encinas ([id number]) on 04/08/2021 3:52:25 PM Referred By: REFERRED SELF Confirmed By:Kapil Encinas
--- NOTE | 2021-04-08 18:43 | Billing Data ---
Date of Service April 08, 2021 Coding Level of Care Code D/C DAY MANAGEMENT <30 MINS
--- NOTE | 2021-04-08 18:44 | Billing Data ---
Date of Service April 08, 2021 Coding Level of Care Code D/C DAY MANAGEMENT <30 MINS
== END 2021-04-08 12:48 | disposition home or self-care (01) | DRG 291 ==
LOC: ED 21:31 → SUATTDRO 04-01 00:45 → 2S 04-01 00:45 → 3N 04-07 18:02